=== PATIENT | female | born 1945 | race Caucasian/White ===

== ENCOUNTER 2023-05-27 10:01 | Inpatient (IN) | payer MEDICARE, SELFPAY ==
[2023-05-27] VITALS (10 sets, daily range): BP systolic 139–154; BP diastolic 77–97; PULSE 71–106; RESP 16–18; TEMP 36.9–37.3; O2SAT 95–100; BMI 31.8; BMI 32.0
--- NOTE | ~2023-05-27 | US_ITS ---
EXAMINATION: US right upper quadrant DATE: 05/27/2023 12:20 INDICATION: Right upper quadrant abdominal pain. TECHNIQUE: Multiple grayscale and Doppler ultrasound images of the abdomen were obtained. COMPARISON: CT abdomen and pelvis 05/27/2023 FINDINGS: The visualized portions of the head and body of the pancreas are normal. There is a 5.2 cm cyst with fluid/fluid level in the liver. There is normal flow in main portal vein. The gallbladder i s contracted and contains gallstones. There is a positive sonographic Simon sign. The common duct is normal and measures 8 mm. IMPRESSION: 1. Contracted gallbladder with gallstones. These findings are unlikely to represent acute cholecystit is despite the positive sonographic Simon sign. Consider hepatobiliary scintigraphy. Reviewed, dictated and finalized at location A. NURSE MANAGER IMPRESSION: 1. Contracted gallbladder with gallstones. These findings are unlikely to repre sent acute cholecystitis despite the positive sonographic Simon sign. Consider hepatobiliary scintigraphy.
--- NOTE | ~2023-05-27 | CT_ITS ---
EXAMINATION: CT guide absc cath placement DATE: 05/28/2023 15:33 INDICATION: Hepatic abscess. TECHNIQUE: The procedure including the risks, benefits, and alternatives was discussed with the patie nt. Risks discussed included bleeding and infection. The patient understood the risks and benefits an d agreed to proceed. The skin overlying the abdomen was prepped and draped in usual sterile fashion. Anesthetic was administered with 1% lidocaine subcutaneously. An 18 gauge trochar needle was inserte d into the hepatic abscess with CT guidance. The needle was exchanged over a wire for 6 Albanian and 8 Albanian dilators and then for an 8.5 Albanian pigtail catheter. The catheter was stitched to the skin, a nd a sterile dressing was applied. The mA was adjusted according to patient size. Iterative reconstru ction technique was employed. The dose-length product was 260.82 mGy-cm. The patient experienced a va sovagal reaction during the procedure. FINDINGS: CT images demonstrate the catheter within the hepatic abscess. 8 mL fluid was aspirated for testing. IMPRESSION: 1. Successful CT-guided hepatic abscess drainage. 2. 8 mL yellow fluid was sent for aerobic and anaerobic cultures. Reviewed, dictated and finalized at location A. NURSE
--- NOTE | ~2023-05-27 | CT_ITS ---
EXAMINATION: CT abdomen pelvis w con DATE: 05/27/2023 11:45 INDICATION: Right upper quadrant, left upper quadrant and epigastric pain TECHNIQUE: Computed tomography (CT) of the abdomen and pelvis was performed with 100 CC Omnipaque 350 intravenous contrast. Automated exposure control and iterative reconstruction technique were employe d. Exam dose: 571.57 mGy-cm total exam DLP. COMPARISON: None. FINDINGS: There is a focal discoid scarring or atelectasis at the left lung base, left lower lobe. No consolidation at the lung bases. Heart size is within normal range. No pericardial or pleural effusi on. Contiguous 3.6 x 4 cm and 1.8 x 2.5 cm left hepatic cysts. Mild intrahepatic and extra hepatic bile duct dilatation. Recommend correlation with serum bilirubin level. MRCP for further evaluation if clinically indicated. Normal splenic size. No pancreatic mass lesion or calcification or ductal dilatation. Prominent duodenal diverticulum. The right adrenal gland appears normal. Possible small left adrenal mass, most likely adenoma. No renal mass lesion or urinary tract calculus or hydroureteronephrosis is evident. The urinary bladd er, uterus and adnexal areas are unremarkable other than approximately 1.5 cm left ovarian cyst. There is atherosclerotic calcification of the abdominal aorta. No intraperitoneal or retroperitoneal or pelvic mass lesion or adenopathy or ascites. Normal appendix. Diverticulosis of the colon; no CT evidence of diverticulitis. No bowel obstruction, bowel wall thick ening, pneumatosis or intraperitoneal free air. Chronic mild anterior wedging of T11 and T12. No suspicious osteolytic or osteoblastic lesions are noted. IMPRESSION: Hepatic cysts Nonspecific mild intrahepatic and extrahepatic bile duct dilatation; recommend correlation with serum bilirubin level. Duodenal diverticulum Normal appendix Diverticulosis of the colon; no evidence of diverticulitis 1.5 cm left ovarian cyst Reviewed, dictated and finalized at Location A. Reviewed, dictated and finalized at location B. MACHINIST
--- NOTE | ~2023-05-27 | CT_ITS ---
EXAMINATION: CT abdomen pelvis w con DATE: 05/30/2023 11:59 INDICATION: Follow-up hepatic abscess post drainage TECHNIQUE: Computed tomography (CT) of the abdomen and pelvis was performed with 100 mL Omnipaque-350 intravenous contrast. Automated exposure control and iterative reconstruction technique were employe d. The dose-length product was 763.53 mGy-cm. COMPARISON: CT dated 05/27/2023 and 05/28/2023 MRI dated FINDINGS: Again seen is discoid atelectasis/scarring at the bilateral lower lobes. Heart size is normal. No per icardial or pleural effusion. Small sliding-type hiatal hernia. Near complete decompression of the pr ior hepatic abscess in the medial segment of the left hepatic lobe post percutaneous abscess drainage catheter placement. The degree of residual small collection of fluid along the cephalad margin of th e catheter measures approximately 2.3 x 1.3 x 0.8 cm no interval change in mild intrahepatic ductal o r ductal dilation. Fluid and debris within a 2.8 x 2.2 cm duodenal diverticulum along the posterior m argin of the head of the pancreas. Pancreas, spleen, bilateral adrenal glands and kidneys are normal. There is mild colonic diverticulosis with a sigmoid and descending colon predominance without adjace nt inflammatory change to suggest diverticulitis. Small bowel and appendix are normal. 1.3 cm left ov marcelo cyst/follicle. Bladder and anteverted uterus are normal. No free intraperitoneal gas or fluid. No pathologically enlarged abdominal or pelvic lymphadenopathy. Mild thoracic and lumbar spondylosis with chronic mild anterior wedging at T11 and T12. IMPRESSION: 1. Near complete decompression post percutaneous drainage of intrahepatic abscess in the medial segme nt left hepatic lobe with 2.3 x 1.3 x 0.8 cm residual fluid collection. Reviewed, dictated and finalized at location A. IFIED MEDICAL ASSISTANT IMPRESSION: 1. Near complete decompression post percutaneous drainage of intrahepatic absce ss in the medial segment left hepatic lobe with 2.3 x 1.3 x 0.8 cm residual flu id collection.
--- NOTE | ~2023-05-27 | MR_ITS ---
EXAMINATION: MR MRCP wo/w con/w 3D wo ind DATE: 05/28/2023 09:10 INDICATION: Dilated common bile duct. Right upper quadrant abdominal pain. TECHNIQUE: Magnetic resonance imaging (MRI) of the abdomen was performed without and with 15 mL Multi Aung intravenous contrast. Sequences included coronal T2-weighted FS FSE, coronal T2-weighted FSE, a xial T1-weighted LAVA, coronal FS FIESTA, axial dual-echo T1-weighted SPGR, coronal lava-FLEX, sagitt al T2-weighted FSE, axial T2-weighted FSE, and axial DWI. Thick-slab T2-weighted FSE images were obta ined for magnetic resonance cholangiopancreatography (MRCP). Maximum intensity projection 3-D reconst ructions of the volumetric data were created by the technologist. Postcontrast sequences included cor onal LAVA-flex and time course of axial T1-weighted LAVA. COMPARISON: CT abdomen and pelvis 05/27/2023, ultrasound 05/27/2023 FINDINGS: ABDOMEN MRI: There is a 5.4 x 4.1 x 4.6 cm cystic mass in the left hepatic lobe with hyperenhancing w all containing dependent material. There are gallstones in the gallbladder, which is normal in size. There is a diverticulum of the second portion the duodenum. There is a small sliding hiatal hernia. T he spleen, pancreas, adrenal glands, and kidneys are normal. There are no dilated loops of bowel. ABDOMEN MRCP: The common duct is normal and measures 7 mm. No choledocholithiasis. IMPRESSION: 1. 5.4 x 4.1 x 4.6 cm abscess in left hepatic lobe. Consider CT-guided drainage. 2. Cholelithiasis. 3. Small sliding hiatal hernia. Reviewed, dictated and finalized at location A. OLOGY TECHNOLOGIST IMPRESSION: 1. 5.4 x 4.1 x 4.6 cm abscess in left hepatic lobe. Consider CT-guided drainage . 2. Cholelithiasis. 3. Small sliding hiatal hernia.
--- NOTE | ~2023-05-27 | NM_ITS ---
EXAMINATION: NM hepatobiliary w pharm DATE: 05/28/2023 11:18 INDICATION: Dilated common bile duct. COMPARISON: CT 05/27/2023 TECHNIQUE: 4.8 mCi Tc-99m mebrofenin (Choletec) was administered intravenously. Scintigraphic images of the abdomen were obtained for one hour. Then, 2 mg morphine IV was administered, and imaging was continued for 30 minutes. Delayed images were obtained at 4 hours. FINDINGS: There is normal clearance of radiotracer from the blood pool. There is decreased activity i n the liver correlating with the abscess seen by MRI. Activity progresses to the bowel and gallbladde r. IMPRESSION: 1. Patent cystic duct and common duct. Reviewed, dictated and finalized at location A. PACKER
--- NOTE | 2023-05-27 10:22 | ECG_ITS ---
Measurements Intervals [place] Rate: 87 P: 24 ND: 134 QRS: -35 QRSD: 92 T: 23 QT: 346 QTc: 416 Interpretive Statements SINUS RHYTHM WITH OCCASIONAL SUPRAVENTRICULAR PREMATURE COMPLEXES MARKED LEFT AXIS DEVIATION [QRS AXIS < -30] LOW QRS VOLTAGE IN PRECORDIAL LEADS [QRS DEFLECTION < 1.0 mV IN CHEST LEADS] INCOMPLETE RIGHT BUNDLE BRANCH BLOCK [90+ ms QRS DURATION, TERMINAL R IN V1/V2, 40+ ms S IN I/aVL/V4/V5/V6] VOLTAGE CRITERIA FOR LVH [MEETS CRITERIA IN ONE OF: R(aVL), S(V1), R(V5), R(V5/V6)+S(V1)] POSSIBLE ANTERIOR MYOCARDIAL INFARCTION , PROBABLY OLD [30 ms Q WAVE IN V3/V4, OR R < 0.2 mV IN V4] ABNORMAL ECG NO PREVIOUS ECG AVAILABLE FOR COMPARISON Electronically Signed On 05-27-2023 11:54:52 PRIVATE BRANCH EXCHANGE SERVICE ADVISOR by Eduardo Mandujano M.D.
[2023-05-27 11:12] LABS: Basophils Percent Auto 0.2 % (0.2-1.2); Eosinophils Percent Auto 0.1 % (0-4.4); Hemoglobin 12.9 g/dL (12.0-15.0); Immature Granulocyte Absolute 0.06 K/mm3 (0.00-0.031); Immature Granulocyte Percent A 0.4 % (0-0.5); Lymphocytes Absolute Auto 1.12 K/mm3 (0.9-3.2); Lymphocytes Percent Auto 8.2 % (18.3-44.2); Mean Corpuscular HGB Conc 32.3 g/dl (32-36); Mean Corpuscular Hemoglobin 28.7 pg (26-34); Mean Corpuscular Volume 88.9 fl (80-100); Mean Platelet Volume 10.6 fl (7.4-10.4); Monocytes Absolute Auto 1.2 K/mm3 (0.1-0.6); Monocytes Percent Auto 8.4 % (2.6-8.5); Neutrophils Absolute Auto 11.4 K/mm3 (1.3-6.7); Neutrophils Percent Auto 82.7 % (45.5-73.1); Platelet Count Result 228 k/mm3 (150-375); Red Cell Distribution Width 14.2 % (11.5-14.5); White Blood Count 13.7 K/mm3 (4.5-10.0)
[2023-05-27 11:22] LABS: Alanine Aminotransferase 27 U/L (6-35); Albumin Level 4.1 g/dL (3.5-5.1); Alkaline Phosphatase 118 U/L (38-126); Anion Gap 5 mmol/L (8-16); Aspartate Amino Transferase 26 U/L (14-36); Bilirubin,Total 1.8 mg/dL (0.2-1.3); Blood Urea Nitrogen 16 mg/dL (7-17); Calcium 9.8 mg/dL (8.4-10.2); Carbon Dioxide 32 mmol/L (22-30); Chloride 99 mmol/L (98-107); Estimated CRCL calculation 57 ml/min; Estimated Glomerular Filt Rate > 60; Glucose 126 mg/dL (65-110); Lipase 28 U/L (23-300); Potassium 3.4 mmol/L (3.4-5.0); Sodium 136 mmol/L (137-145)
--- NOTE | 2023-05-27 11:23 | ED.ABDPAIN ---
HPI - Abdominal Pain General Chief Complaint: Abdominal Pain <Ivanna Charlton PA-C - Last Filed: 05/27/23 15:18> Stated Complaint: abd pain <Ivanna Charlton PA-C - Last Filed: 05/27/23 15:18> Time Seen by Provider: 05/27/23 11:05 <CAPRI Wilder Last Filed: 05/27/23 15:18> History of Present Illness HPI narrative: 78-year-old female reports for evaluation for epigastric, right upper quadrant left upper quadrant abdominal pain x4 days. Patient states 3 days ago, she developed body aches, headache, fever of 100.8. States she felt ill for approximately 2 days but that has since resolved. States she noted that her abdominal pain worsened every time she would eat. Yesterday, she had [place] onion soup from [employer] and had worsening abdominal pain that has progressed into today. On exam, she states that her pain has improved for the past few hours. She went to Urgent Care and tested negative for COVID and fluid was sent to the emergency department for further evaluation. She is reporting mild cough. Denies chest pain or shortness of breath, dysuria or hematuria, melena hematochezia. Denies prior abdominal surgeries. <CAPRI Wilder Last Filed: 05/27/23 15:18> Related Data Home Medications: Home Medications Medication Instructions Recorded Confirmed alprazolam 0.25 mg tablet 0.25 mg PO DAILY PRN Anxiety 05/27/23 05/27/23 atorvastatin 10 mg tablet 10 mg PO DAILY 05/27/23 05/27/23 hydrochlorothiazide 25 mg tablet 25 mg PO DAILY 05/27/23 05/27/23 lisinopril 10 mg tablet 10 mg PO DAILY 05/27/23 05/27/23 meloxicam 7.5 mg tablet 7.5 mg PO DAILY 05/27/23 05/27/23 trazodone 100 mg tablet 100 mg PO HS 05/27/23 05/27/23 <CAPRI Wilder Last Filed: 05/27/23 15:18> Allergies/Adverse Reactions: Allergies Allergy/AdvReac Type Severity Reaction Status Date / Time aspirin Allergy Unknown Verified 05/27/23 10:21 <Ivanna Charlton PA-C - Last Filed: 05/27/23 15:18> Review of Systems Review of Systems: CONSTITUTIONAL: Denies fever, chills, or sweats. EYES: Denies visual changes, redness, or discharge. ENT: Denies rhinorrhea, congestion, sore throat, or otalgia. CARDIOVASCULAR: Denies chest pain, palpitations, or edema. RESPIRATORY: Denies cough or dyspnea. GASTROINTESTINAL: See HPI GENITOURINARY: Denies dysuria or hematuria. SKIN: Denies rash or itching. MUSCULOSKELETAL: Denies back pain, joint pain, or myalgia. NEUROLOGIC: Denies headache, numbness, or weakness. PSYCHIATRIC: Denies anxiety or depression. <Ivanna Charlton PA-C - Last Filed: 05/27/23 15:18> PMFSH Social History Social History: Social History Smoking status: Never smoker Alcohol intake: never Substance use: never Do You Feel Safe in your Home?: Yes Lack of Transportation: No Lack of Food: Never True Current Housing: I Have Housing Concerned About Future Housing: No Difficulty Paying Gas/Electric Bills: No Difficulty Paying for Meds: No Currently Unemployed: No Education: Decline to Answer Difficulty w/ Childcare or Family Care: No Spiritual care concerns: No <Ivanna Charlton PA-C - Last Filed: 05/27/23 15:18> Exam Narrative: GENERAL: Well-appearing, well-nourished, and in no acute distress. Patient resting comfortably in exam bed. She is pleasant and conversational. Nontoxic. HEAD: Normocephalic, atraumatic. EYES: PERRLA and EOMI. ENT: Nares clear, no rhinorrhea or epistaxis. Mucous membranes moist. NECK: Supple. CHEST: Clear to auscultation. No respiratory distress. HEART: Regular rate and rhythm. No murmur heard. Normal peripheral pulses. ABDOMEN: Normoactive bowel sounds. Abdomen soft with tenderness in the left upper quadrant, epigastrium and right upper quadrant. Guarding in the right upper quadrant with positive Simon sign. No rebound rigidity. No CVA tenderness. EXTREMITIES: Normal
[2023-05-27 11:26] LABS: Appearance Urine Clear (Clear); Bacteria Urine None Seen /hpf; Bilirubin Urine Negative (Negative); Blood Urine Negative (Negative); Color Urine Yellow (Yellow); Glucose Urine UA Negative (Negative); Ketones Urine Negative (Negative); Leukocyte Esterase Ur Trace LEU/UL (Negative); Nitrate Urine Negative (Negative); Non Pathogenic Casts 0-2; Protein Urine Negative (Negative); RBC Urine 0-2 /hpf (0-2); Specific Grav Ur 1.015 (1.001-1.035); Squamous Epithelial Cell Urine Few /hpf (Few); WBC Urine 0-5 /hpf
[2023-05-27] MEDS: ACETAMINOPHEN 500 MG TABLET 1000 MG PO (11:26)
[2023-05-27 11:41] LABS: Add Urine Microscopic? YES
[2023-05-27 11:46] LABS: Influenza A QL RT-PCR Negative (Negative); Influenza B QL RT-PCR Negative (Negative); RSV RNA, RT-PCR Negative (Negative); SARS-CoV-2 RNA PCR Negative (Negative)
[2023-05-27 11:48] LABS: Troponin I < 0.012 ng/mL (0.000-0.034)
[2023-05-27] MEDS: FAMOTIDINE 20 MG/2 ML VIAL IV PUSH (11:50)
[2023-05-27 11:51] LABS: Lactic Acid Reflex 1.2 mmol/L (0.7-2.0)
[2023-05-27] MEDS: SODIUM CHLORIDE 0.9% IV 1,000 ML 999 ML IV CONT (15:03)
[2023-05-27] MEDS: PIPERACILLN/TAZ 3.375GM/NS50ML 3.375 GM/50 ML BAG IVPB ×2 (15:03→20:28)
--- NOTE | 2023-05-27 15:07 | WPDGICN ---
Assessment and Plan Assessment and plan (1) Cholelithiasis: Qualifiers: Biliary obstruction: without biliary obstruction Cholecystitis presence: without cholecystitis Cholelithiasis location: gallbladder Qualified Code(s): K80.20 - Calculus of gallbladder without cholecystitis without obstruction Code(s): K80.20 - Calculus of gallbladder without cholecystitis without obstruction Status: Acute Assessment and Plan: ultrasound shows a contracted gallbladder with numerous stones. Investment Sales Assistant reported positive Simon sign. (2) Intrahepatic bile duct dilation: Code(s): K83.8 - Other specified diseases of biliary tract Status: Acute Assessment and Plan: CT scan of the abdomen reveals: FINDINGS: There is a focal discoid scarring or atelectasis at the left lung base, left lower lobe. No consolidation at the lung bases. Heart size is within normal range. No pericardial or pleural effusion. Contiguous 3.6 x 4 cm and 1.8 x 2.5 cm left hepatic cysts. Mild intrahepatic and extra hepatic bile duct dilatation. Recommend correlation with serum bilirubin level. MRCP for further evaluation if clinically indicated. Normal splenic size. No pancreatic mass lesion or calcification or ductal dilatation. Prominent duodenal diverticulum. The right adrenal gland appears normal. Possible small left adrenal mass, most likely adenoma. No renal mass lesion or urinary tract calculus or hydroureteronephrosis is evident. The urinary bladder, uterus and adnexal areas are unremarkable other than approximately 1.5 cm left ovarian cyst. There is atherosclerotic calcification of the abdominal aorta. No intraperitoneal or retroperitoneal or pelvic mass lesion or adenopathy or ascites. Normal appendix. Diverticulosis of the colon; no CT evidence of diverticulitis. No bowel obstruction, bowel wall thickening, pneumatosis or intraperitoneal free air. Chronic mild anterior wedging of T11 and T12. No suspicious osteolytic or osteoblastic lesions are noted. (3) Fever and chills: Code(s): R50.9 - Fever, unspecified Status: Acute Assessment [place] Plan: [place] [address]. She is afebrile here in the emergency room. she will be started on antibiotics, Zosyn Plan will order MRCP. She may also benefit from HIDA scan. NPO for now I told her that if the MRCP shows stones in the common bile duct, that we may need to perform an ERCP. If negative, then we would probably request surgery to visit her again. GI Consult Note Consult date/time: 05/27/23 15:07 HPI: Ying Franco is a 78 year old female who came to the emergency room because of persistent right upper quadrant pain had fever and chills. On Thursday she developed pain across the upper abdomen, more on the right than left. It was present all day and subsided a bit on Thursday. After feeling that it was almost gone, it came back with a vengeance yesterday after she had some soup. Also, on Thursday and Thursday she has been having intermittent chills and fever. She has eaten very little over these days because the pain always got worse when she would try to eat. Ultrasound shows a contracted gallbladder with stones. Pace and LFTs are normal but bilirubin is marginally elevated at 1.8. lipase is also normal. This surgery was apparently contacted and declined to see the patient feeling that this is probably not gallbladder disease. On the ultrasound she apparently did have a positive Simon sign. Review of Systems Review of Systems: All systems reviewed & are unremarkable except as noted in HPI and below Meds Home Medications and Allergies Allergies Allergy/AdvReac Type Severity Reaction Status Date / Time aspirin Allergy Unknown Verified 05/27/23 10:21 Vital Signs Vital Signs - 24 hr 05/27/23 10:17 05/27/23 11:52 05/27/23 12:11 Temperature 36.9 C Pulse Rate 88 Respiratory Rate 16 Blood Pressure 142/85 H
[2023-05-27] MEDS: MORPHINE SULFATE (*CRX) 2 MG/ML INJ IV PUSH ×2 (16:43→20:37)
--- NOTE | 2023-05-27 16:50 | ADMGEN ---
This patient, Ying Franco, was admitted to [address] [place] [address] Room 311-01. Patient/family oriented to hospital policies and general routines including ID bracelet, bed and alarms, visiting hours, pain management, procedures, bathroom and other care routines, personal items, smoking policy, room service/diet, and visiting hours. Information on how to activate the Rapid Response Team has been discussed. Patient/Family are encouraged to report perceived risks to care and to ask questions if they do not understand what they are told or what they should do.
--- NOTE | 2023-05-27 19:24 | WPDCN ---
Assessment and Plan Assessment and plan (1) Cholelithiasis: Qualifiers: Biliary obstruction: without biliary obstruction Cholecystitis presence: without cholecystitis Cholelithiasis location: gallbladder Qualified Code(s): K80.20 - Calculus of gallbladder without cholecystitis without obstruction Code(s): K80.20 - Calculus of gallbladder without cholecystitis without obstruction Status: Acute Assessment and Plan: Patient has right upper quadrant abdominal pain and gallstones and a contracted gallbladder on imaging. She also has dilated common bile duct with some dilated intrahepatic bile ducts. She may passing gallstones and have a retained common bile duct stone causing the bile duct dilatation. She has been seen by Dr. Howard from Gastroenterology in MRCP has been ordered for tomorrow. She could also have chronic cholecystitis but no evidence of acute cholecystitis seen on imaging. I am going to order HIDA scan to be performed tomorrow as well to evaluate the function of the gallbladder and see the cystic duct is patent. For now she should be kept NPO with only ice chips. Zosyn was started for IV antibiotics because she had white blood count 13757 and she may have biliary obstruction. (2) Intrahepatic bile duct dilation: Code(s): K83.8 - Other specified diseases of biliary tract Status: Acute Assessment and Plan: Could be related to biliary obstruction. MRCP is pending for tomorrow. If common bile duct stones are seen the patient will need ERCP prior to any attempt at a laparoscopic cholecystectomy. [facility] Data of Consult Date/Time: 05/27/23 19:24 Requesting Physician: Jak Canales MD Primary Care Provider: PHYSICIAN NOT ON STAFF Consult Narrative Reason for consult: Right upper quadrant abdominal pain and gallstones Narrative: Ying Franco is a 78 year old female who presented to the emergency room today with a 3 day history of worsening right upper quadrant abdominal pain. She had not had this pain in the past. She has denied having any associated pain with eating or any nausea with eating. She has not had any previous abdominal surgery. She does have hypertension but no diabetes. Denies any pulmonary, cardiac, or renal disease. Imaging to include a CT scan of the abdomen pelvis and ultrasound showed a mildly thickened gallbladder wall and a contracted gallbladder with gallstones. There is no pericholecystic fluid acute cholecystitis on imaging. [place] [address]. Imaging did seem to show a dilated common bile duct and some intrahepatic bile duct dilatation. No obvious gallstone was seen on imaging in the bile ducts. She has been admitted to the hospital the surgical floor for further evaluation. She was given a dose of IV antibiotics in the emergency room. She has been seen by Dr. Howard from Gastroenterology and an MRCP is ordered for tomorrow. Review of Systems Review of Systems: The remainder of the review of systems to include constitutional, HEENT, cardiovascular, respiratory, GI, , integumentary, musculoskeletal, endocrine, immunologic, hematologic, psychiatric, and neurologic are all negative except for which is mentioned above in the HPI. [facility] Social History Social History Smoking status: Never smoker Alcohol intake: never Substance use: never Do You Feel Safe in your Home?: Yes Lack of Transportation: No Lack of Food: Never True Current Housing: I Have Housing Concerned About Future Housing: No Difficulty Paying Gas/Electric Bills: No Difficulty Paying for Meds: No Currently Unemployed: No Education: Decline to Answer Difficulty w/ Childcare or Family Care: No Spiritual care concerns: No Meds Home Medications and Allergies Home Medications Medication Instructions Recorded Confirmed Type alprazol
[2023-05-27] MEDS: DEXTROSE 5%/LACTATED RINGERS 1,000 ML 120 ML IV CONT (20:28)
--- NOTE | 2023-05-27 22:08 | PM.IMHP ---
H&P: HPI History of Present Illness Date/Time: 05/27/23 22:08 Chief Complaint: Abdominal pain Narrative: 78-year-old relatively healthy female with a medical history of essential hypertension, anxiety, osteoarthritis and insomnia who presented to the ER with upper abdominal pain ongoing since Thursday (4 days). she reported that the pain was mostly in the epigastric and right upper quadrant area and was 9/10 in intensity. It was initially associated with some nausea but no significant amount of vomiting. The next day the pain had improved with down to a 5/10 intensity but was accompanied by headaches, body aches fevers and chills. She thought that she was having viral syndrome. Her symptoms improved the next day and she thought she was in the clear. Following day she had some [place] [employer] onion soup after which eating she had more severe pain. The pain was more constant and a 9/10 in intensity again. Pain was throbbing and aching in nature. On palpation has pain as directly in the right upper quadrant. She had no preceding symptoms or prodrome of symptoms prior to Thursday. She denies any associated chest pain or shortness of breath. She has not had any recent weight changes. She denies any jaundice. In the ER CT scan was performed which demonstrate nonspecific mild intrahepatic and extrahepatic bile duct dilatation. Ultrasound of gallbladder demonstrated contracted gallbladder with gallstones but patient did have significant sonographic Simon sign. Review of Systems Review of Systems: 12 systems were reviewed with pertinent positives and negatives per HPI. Except as documented in the HPI, all other systems were reviewed and are negative. [facility] Past Medical History Medical History (Updated 05/27/23 @ 22:10 by Darlin Miranda DO) Anxiety Depression Essential hypertension Hyperlipidemia Migraine Osteoarthritis Surgical History Surgical History (Updated 05/27/23 @ 22:10 by Darlin Miranda DO) History of bilateral knee replacement Status post cataract extraction of both eyes with insertion of intraocular lens (~2022) Family History Family History (Updated 05/28/23 @ 08:22 by Darlin Miranda DO) Sibling Dementia Mother Dementia Father COPD (chronic obstructive pulmonary disease) Social History Social History (Updated 05/28/23 @ 08:26 by Darlin Miranda DO) Social History: Code status: Full code (patient would not want long-term ventilation or feeding tube) Surrogate decision maker: Smoking status: Never smoker Alcohol intake: current Alcohol use details: She rarely drinks alcohol and only in moderation. Substance use: never Do You Feel Safe in your Home?: Yes Lack of Transportation: No Lack of Food: Never True Current Housing: I Have Housing Concerned About Future Housing: No Difficulty Paying Gas/Electric Bills: No Difficulty Paying for Meds: No Currently Unemployed: No Education: Decline to Answer Difficulty w/ Childcare or Family Care: No Additional living arrangements comments: She lives with her of 40 years. She is independent activities of daily living. 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 Spiritual care concerns: No Meds Home Medications and Allergies Home Medications Medication Instructions Recorded Confirmed Type alprazolam 0.25 mg tablet 0.25 mg PO DAILY PRN Anxiety 05/27/23 05/27/23 History atorvastatin 10 mg tablet 10 mg PO DAILY 05/27/23 05/27/23 History hydrochlorothiazide 25 mg tablet 25 mg PO DAILY 05/27/23 05/27/23 History lisinopril 10 mg tablet 10 mg PO DAILY 05/27/23 05/27/23 History meloxicam 7.5 mg tablet 7.5 mg PO DAILY 05/27/23 05/27/23 History trazodone 100 mg tablet 100 mg PO HS 05/27/23 05/27/23 History Allergies Allergy/AdvReac Type Severity Reaction Status Date / Ti
[2023-05-27] MEDS: traZODone HCL 50 MG TABLET 100 MG PO (23:22)
[2023-05-28] MEDS: PIPERACILLN/TAZ 3.375GM/NS50ML 3.375 GM/50 ML BAG IVPB ×3 (03:38→17:20)
[2023-05-28] MEDS: DEXTROSE 5%/LACTATED RINGERS 1,000 ML 120 ML IV CONT (05:33)
[2023-05-28 06:00] VITALS: BP 142/72; PULSE 84; RESP 18; TEMP 36.7; O2SAT 95
[2023-05-28 06:02] LABS: Basophils Percent Auto 0.2 % (0.2-1.2); Eosinophils Percent Auto 0.2 % (0-4.4); Hematocrit 35.8 % (37.0-47.0); Hemoglobin 11.4 g/dL (12.0-15.0); Immature Granulocyte Absolute 0.05 K/mm3 (0.00-0.031); Immature Granulocyte Percent A 0.5 % (0-0.5); Lymphocytes Absolute Auto 1.44 K/mm3 (0.9-3.2); Lymphocytes Percent Auto 13.6 % (18.3-44.2); Mean Corpuscular HGB Conc 31.8 g/dl (32-36); Mean Corpuscular Hemoglobin 28.2 pg (26-34); Mean Corpuscular Volume 88.6 fl (80-100); Mean Platelet Volume 10.4 fl (7.4-10.4); Monocytes Percent Auto 9.4 % (2.6-8.5); Neutrophils Percent Auto 76.1 % (45.5-73.1); Platelet Count Result 239 k/mm3 (150-375); Red Blood Count 4.04 M/mm3 (4.2-5.4); White Blood Count 10.6 K/mm3 (4.5-10.0)
[2023-05-28 06:28] LABS: Alanine Aminotransferase 22 U/L (6-35); Albumin Level 3.6 g/dL (3.5-5.1); Alkaline Phosphatase 102 U/L (38-126); Anion Gap 4 mmol/L (8-16); Aspartate Amino Transferase 25 U/L (14-36); Bilirubin,Total 1.2 mg/dL (0.2-1.3); Blood Urea Nitrogen 13 mg/dL (7-17); Calcium 8.9 mg/dL (8.4-10.2); Carbon Dioxide 31 mmol/L (22-30); Chloride 101 mmol/L (98-107); Estimated CRCL calculation 50 ml/min; Estimated Glomerular Filt Rate > 60; Glucose 151 mg/dL (65-110); Potassium 3.3 mmol/L (3.4-5.0); Sodium 136 mmol/L (137-145)
[2023-05-28] MEDS: MORPHINE SULFATE (*CRX) 2 MG/ML INJ IV PUSH ×4 (11:05→20:20)
[2023-05-28] MEDS: POTASSIUM CHLORIDE INJ 40 MEQ in SODIUM CHLORIDE 0.9% IV 500 ML 130 MEQ IVPB (11:54)
--- NOTE | 2023-05-28 12:49 | WPDPN ---
Progress Note: A&P Assessment and Plan (1) Liver abscess: Code(s): K75.0 - Abscess of liver Status: Acute Assessment and Plan: Patient appears to have an approximate 5cm right medial lobe liver abscess on MRCP. Appears amenable to percutaneous drainage. Will order a image guided liver abscess drainage in Radiology. Continue broad-spectrum IV antibiotic coverage. (2) Cholelithiasis: Qualifiers: Biliary obstruction: without biliary obstruction Cholecystitis presence: without cholecystitis Cholelithiasis location: gallbladder Qualified Code(s): K80.20 - Calculus of gallbladder without cholecystitis without obstruction Code(s): K80.20 - Calculus of gallbladder without cholecystitis without obstruction Status: Acute Assessment and Plan: Cholelithiasis without evidence of acute Cholecystitis. HIDA scan seems to show a patent cystic duct. Given the findings of the right liver abscess which could explain her fever and elevated white blood cell count I think is best at this point not to consider cholecystectomy. (3) Intrahepatic bile duct dilation: Code(s): K83.8 - Other specified diseases of biliary tract Status: Acute Assessment and Plan: No common bile duct stone was seen. Subjective Date/time seen: 05/28/23 12:49 Interval history: Patient is clinically stable today. No new complaints. MRCP showed gallstones and no common bile duct stone. There was a 5cm right hepatic lobe abscess which seemed to be amenable to percutaneous drainage as per the radiology report. HIDA scan has been performed and an official radiology reading is pending however to my review it looks like there is passage of radionucleotide into the duodenum suggesting no obstruction of the cystic duct. She remains afebrile without tachycardia. Blood cell count is down to 10,000 from 13,000 admission. Total bili was down from 1.8 down to 1.3 on the remaining liver enzymes are all normal. Exam GI: Other: Abdomen is soft and nondistended. Minimal tenderness in right upper quadrant to deep palpation. No masses are appreciated. No generalized peritoneal signs noted. Objective Data Vital Signs Vital Signs: Vital Signs - 24 hr 05/27/23 12:55 05/27/23 14:18 05/27/23 13:29 Temperature Pulse Rate 71 Respiratory Rate 16 Blood Pressure 139/97 H Pulse Oximetry 100 100 100 Oxygen Delivery 05/27/23 14:18 05/27/23 14:36 05/27/23 14:46 Temperature Pulse Rate Respiratory Rate Blood Pressure 139/97 H Pulse Oximetry 100 100 100 Oxygen Delivery 05/27/23 17:04 05/27/23 20:20 05/27/23 21:47 Temperature 37.3 C 37.3 C Pulse Rate 79 106 H Respiratory Rate 18 18 Blood Pressure 147/79 H 154/77 H Pulse Oximetry 99 95 Oxygen Delivery Room Air 05/28/23 06:00 Temperature 36.7 C Pulse Rate 84 Respiratory Rate 18 Blood Pressure 142/72 H Pulse Oximetry 95 Oxygen Delivery Intake/Output Intake/Output: Intake & Output 05/25/23 05/26/23 05/27/23 05/28/23 23:59 23:59 23:59 23:59 Intake Total 1100 1000 Balance 1100 1000 Meds/Results Medications: Active Medications Generic Name Dose Route Start Last Admin Trade Name Freq PRN Reason Stop Dose Admin Alprazolam 0.25 mg 05/27/23 22:11 Alprazolam (*Crx) 0.25 Mg Tablet PO DAILY PRN Anxiety Enoxaparin Sodium 40 mg 05/28/23 09:00 05/28/23 11:04 Enoxaparin 40 Mg/0.4 Ml Syringe SUB-Q Not Given DAILY PAUL Hydralazine HCl 10 mg 05/27/23 22:12 Hydralazine Hcl 20 Mg/Ml Vial IV PUSH Q4H PRN SBP greater than 160 Hydrochlorothiazide 25 mg 05/28/23 09:00 05/28/23 11:04 Hydrochlorothiazide 25 Mg Tablet PO Not Given DAILY PAUL Dextrose/Lactated Ringer's 1,000 mls @ 120 mls/hr 05/27/23 19:20 05/28/23 05:33 Dextrose 5%/Lactated Ringers IV CONT 120 mls/hr .Q8H20M PAUL Administration Piperacillin/Tazobactam/Dextrose 3.37
[2023-05-28 12:53] LABS: Prothrombin Time 13.6 Seconds (11.1-14.7)
--- NOTE | 2023-05-28 12:53 | WPDGIPROGNO ---
Progress Note: A&P Assessment and Plan (1) Cholelithiasis: Qualifiers: Biliary obstruction: without biliary obstruction Cholecystitis presence: without cholecystitis Cholelithiasis location: gallbladder Qualified Code(s): K80.20 - Calculus of gallbladder without cholecystitis without obstruction Code(s): K80.20 - Calculus of gallbladder without cholecystitis without obstruction Status: Acute Assessment and Plan: ultrasound shows a contracted gallbladder with numerous stones. Pet Trainer reported positive Simon sign. (2) Intrahepatic bile duct dilation: Code(s): K83.8 - Other specified diseases of biliary tract Status: Acute Assessment and Plan: CT scan of the abdomen reveals: FINDINGS: There is a focal discoid scarring or atelectasis at the left lung base, left lower lobe. No consolidation at the lung bases. Heart size is within normal range. No pericardial or pleural effusion. Contiguous 3.6 x 4 cm and 1.8 x 2.5 cm left hepatic cysts. Mild intrahepatic and extra hepatic bile duct dilatation. Recommend correlation with serum bilirubin level. MRCP for further evaluation if clinically indicated. Normal splenic size. No pancreatic mass lesion or calcification or ductal dilatation. Prominent duodenal diverticulum. The right adrenal gland appears normal. Possible small left adrenal mass, most likely adenoma. No renal mass lesion or urinary tract calculus or hydroureteronephrosis is evident. The urinary bladder, uterus and adnexal areas are unremarkable other than approximately 1.5 cm left ovarian cyst. There is atherosclerotic calcification of the abdominal aorta. No intraperitoneal or retroperitoneal or pelvic mass lesion or adenopathy or ascites. Normal appendix. Diverticulosis of the colon; no CT evidence of diverticulitis. No bowel obstruction, bowel wall thickening, pneumatosis or intraperitoneal free air. Chronic mild anterior wedging of T11 and T12. No suspicious osteolytic or osteoblastic lesions are noted. MRCP is normal. No common bile duct stones. HIDA scan has been done and results are pending. (3) Fever and chills: Code(s): R50.9 - Fever, unspecified Status: Acute Assessment [place] Plan: [place] [id number]. She is afebrile here in the emergency room. she will be started on antibiotics, Zosyn Today white blood count is down to 10,600. Plan will order MRCP. She may also benefit from HIDA scan. NPO for now I told her that if the MRCP shows stones in the common bile duct, that we may need to perform an ERCP. If negative, then we would probably request surgery to visit her again. MRCP is negative. LFTs are also improving. I will sign off Subjective Date/time seen: 05/28/23 12:53 She states that her pain is a little better but she feels crummy, and weak. She has been getting tests all morning and has had nothing to eat. She expressed that if surgery is not going to be done she would like to to try eating. I discussed with her the results of the MRCP which as I suspected were negative for choledocholithiasis. HIDA scan has been done but we do not have the results. I told her that my assistance will not be needed at this time and will sign off Exam Const: General: cooperative and healthy appearing Orientation/consciousness: patient oriented x3 HENMT: Head: normal to inspection Ears: hearing grossly normal bilaterally Mouth: Yes Normal oral and palatal mucosa present Eyes: General: appearance normal, both eyes and all related structures Neck: Neck: normal visual inspection Chest: Chest palpation & inspection: normal inspection of the chest Resp: Effort & Inspection: normal respiratory effort Auscultation: clear to auscultation bilaterally Cardio: Rate: regular rate Rhythm: regular rhythm GI: Inspection: normal to inspection GI Palp: Yes abdominal tenderness ( Epigastric and right upper quadrant), Yes Soft to pa
[2023-05-28 14:00] VITALS: BP 132/60; PULSE 70; RESP 20; TEMP 36.7; O2SAT 96
--- NOTE | 2023-05-28 15:03 | PM.IMPN ---
Progress Note: A&P Assessment and Plan (1) Cholelithiasis: Qualifiers: Biliary obstruction: without biliary obstruction Cholecystitis presence: without cholecystitis Cholelithiasis location: gallbladder Qualified Code(s): K80.20 - Calculus of gallbladder without cholecystitis without obstruction Code(s): K80.20 - Calculus of gallbladder without cholecystitis without obstruction Status: Acute Assessment and Plan: Cholelithiasis without evidence of acute ? HIDA scan seems to show a patent cystic duct.? right liver abscess which could explain her fever and elevated white blood cell pt is being considered for cholecystectomy. (2) Fever and chills: Code(s): R50.9 - Fever, unspecified Status: Resolved Assessment and Plan: -continue to monitor vital signs (3) Intrahepatic bile duct dilation: Code(s): K83.8 - Other specified diseases of biliary tract Status: Acute Assessment and Plan: ?No common bile duct stone was seen. Subjective Date/time seen: 05/28/23 0830 Interval history: Chief Complaint: Abdominal pain Narrative: 78-year-old relatively healthy female with a medical history of essential hypertension, anxiety, osteoarthritis and insomnia who presented to the ER with upper abdominal pain ongoing since Thursday (4 days).? she reported that the pain was mostly in the epigastric and right upper quadrant area and was 9/10 in intensity.? It was initially associated with some nausea but no significant amount of vomiting.? The next day the pain had improved with down to a 5/10 intensity but was accompanied by headaches, body aches fevers and chills.? She thought that she was having viral syndrome.? Her symptoms improved the next day and she thought she was in the clear.? Following day she had some [place] onion soup after which eating she had more severe pain.? The pain was more constant and a 9/10 in intensity again.? Pain was throbbing and aching in nature.? On palpation has pain as directly in the right upper quadrant.? She had no preceding symptoms or prodrome of symptoms prior to Thursday.? She denies any associated chest pain or shortness of breath.? She has not had any recent weight changes.? She denies any jaundice.? In the ER CT scan was performed which demonstrate nonspecific mild intrahepatic and extrahepatic bile duct dilatation.? Ultrasound of gallbladder demonstrated contracted gallbladder with gallstones but patient did have significant sonographic Simon sign. Interval Hx:05/28/2023 Pt was seen around 1600, today, she is has been in procedure for most of the day, she is awake, anxious, c/o of ongoing RUQ pain, specifically where her CT guided hepatic abscess drain has been placed. Denies any n/v, chest pain or SOB at this time. She has multiple request for pain medication. Review of Systems Review of Systems: All systems reviewed & are unremarkable except as noted in HPI and below Exam Narrative: Weight 79.5 kg BMI 32.1 Const: General: cooperative and acute distress mild Orientation/consciousness: patient oriented x3 Other: Obese, no acute distress, appears stated age HENMT: Head: normal to inspection Ears: hearing grossly normal bilaterally Mouth: Yes Normal oral and palatal mucosa present Other: Mucous membranes moist intact, no oral pharyngeal erythema Eyes: General: appearance normal, both eyes and all related structures Sclera: sclerae normal ( No scleral icterus) Pupils: Equal, round and reactive pupils present EOM: EOMs intact bilaterally Other: No scleral icterus, no conjunctival pallor Neck: Neck: normal visual inspection, supple and no JVD Other: Large neck circumference, no lymphadenopathy, supple Chest: Chest palpation & inspection: normal inspection of the chest Resp: Effort & Inspection: normal respiratory effort Auscultation: clear to auscultation bilaterally Other: Clear to auscultation bi
[2023-05-28] MEDS: ALPRAZolam (*CRX) 0.25 MG TABLET PO (17:21)
[2023-05-28 20:00] VITALS: O2SAT 96
[2023-05-28 20:20] VITALS: BP 144/87; PULSE 86; RESP 16; TEMP 36.9; O2SAT 96
[2023-05-28] MEDS: traZODone HCL 50 MG TABLET 100 MG PO (20:20)
[2023-05-28 23:42] VITALS: BP 138/60; PULSE 70; RESP 16; TEMP 36.1; O2SAT 97
[2023-05-29] MEDS: DEXTROSE 5%/LACTATED RINGERS 1,000 ML 120 ML IV CONT (02:45)
[2023-05-29 04:10] VITALS: BP 138/68; PULSE 82; RESP 16; TEMP 36.4; O2SAT 98
[2023-05-29] MEDS: PIPERACILLN/TAZ 3.375GM/NS50ML 3.375 GM/50 ML BAG IVPB ×3 (05:06→11:51)
[2023-05-29] MEDS: ALPRAZolam (*CRX) 0.25 MG TABLET PO (08:27)
[2023-05-29] MEDS: hydroCHLOROthiazide 25 MG TABLET PO (08:27)
[2023-05-29] MEDS: lisinopriL 10 MG TABLET PO (08:27)
[2023-05-29] MEDS: ENOXAPARIN 40 MG/0.4 ML SYRINGE SUB-Q (08:27)
[2023-05-29] MEDS: MORPHINE SULFATE (*CRX) 2 MG/ML INJ IV PUSH ×5 (08:33→20:16)
--- NOTE | 2023-05-29 12:21 | PM.IMPN ---
Subjective Date/time seen: 05/29/23 12:21 Interval history: Chief Complaint: Abdominal pain Narrative: 78-year-old relatively healthy female with a medical history of essential hypertension, anxiety, osteoarthritis and insomnia who presented to the ER with upper abdominal pain ongoing since Thursday (4 days).? she reported that the pain was mostly in the epigastric and right upper quadrant area and was 9/10 in intensity.? It was initially associated with some nausea but no significant amount of vomiting.? The next day the pain had improved with down to a 5/10 intensity but was accompanied by headaches, body aches fevers and chills.? She thought that she was having viral syndrome.? Her symptoms improved the next day and she thought she was in the clear.? Following day she had some [place] onion soup after which eating she had more severe pain.? The pain was more constant and a 9/10 in intensity again.? Pain was throbbing and aching in nature.? On palpation has pain as directly in the right upper quadrant.? She had no preceding symptoms or prodrome of symptoms prior to Thursday.? She denies any associated chest pain or shortness of breath.? She has not had any recent weight changes.? She denies any jaundice.? In the ER CT scan was performed which demonstrate nonspecific mild intrahepatic and extrahepatic bile duct dilatation.? Ultrasound of gallbladder demonstrated contracted gallbladder with gallstones but patient did have significant sonographic Simon sign. Interval Hx:05/28/2023 Pt was seen around 1600, today, she is has been in procedure for most of the day, she is awake, anxious, c/o of ongoing RUQ pain, specifically where her CT guided hepatic abscess drain has been placed. Denies any n/v, chest pain or SOB at this time. She has multiple request for pain medication. 05/29/2023: Patient seen this morning she is awake lying in bed, in no acute distress. She denies any overnight once her pain was managed, she states she feels so much better than she did s/p: Hepatic drain placement. She admits to ongoing tenderness to drain site, she denies any other complaints of chest pain nausea vomiting fever chills. Review of Systems Review of Systems: All systems reviewed & are unremarkable except as noted in HPI and below Exam Const: General: cooperative, comfortable and awake Orientation/consciousness: patient oriented x3 Other: Obese, no acute distress, appears stated age HENMT: Head: normal to inspection Ears: hearing grossly normal bilaterally Mouth: Yes Normal oral and palatal mucosa present Other: Mucous membranes moist intact, no oral pharyngeal erythema Eyes: General: appearance normal, both eyes and all related structures Sclera: sclerae normal ( No scleral icterus) Pupils: Equal, round and reactive pupils present EOM: EOMs intact bilaterally Other: No scleral icterus, no conjunctival pallor Neck: Neck: normal visual inspection, supple and no JVD Other: Large neck circumference, no lymphadenopathy, supple Chest: Chest palpation & inspection: normal inspection of the chest Resp: Effort & Inspection: normal respiratory effort Auscultation: clear to auscultation bilaterally Other: Clear to auscultation bilaterally, no increased work of breathing Cardio: Rate: regular rate Rhythm: regular rhythm Other: Regular rate, regular rhythm, 2+ bilateral radial pedal pulses GI: Inspection: normal to inspection Auscultation: normal bowel sounds Other: Abdomen mild distention, moderate point tenderness to drain site, drain is patent, has been emptied. Skin: General skin exam: normal color and no jaundice Other: No jaundice, no pallor Neuro: General: patient oriented x3 Cranial nerves: Yes Equal, round and reactive pupils present Speech: normal speech Motor exam (neuro): 5/5 motor strength present throughout Sensory Exam: normal sensation Other: Alert oriented, speech is clear Extr
[2023-05-29 14:00] VITALS: BP 148/66; PULSE 88; RESP 16; TEMP 36.7; O2SAT 98
[2023-05-29] MEDS: PIPERACILLIN/TAZ 4.5G/NS 100ML 4.5 GM/100 ML BAG IVPB ×2 (17:03→23:45)
[2023-05-29 20:00] VITALS: O2SAT 98
[2023-05-29] MEDS: traZODone HCL 50 MG TABLET 100 MG PO (20:15)
[2023-05-29 21:19] VITALS: BP 145/72; PULSE 75; RESP 16; TEMP 36.1; O2SAT 97
[2023-05-30] MEDS: DEXTROSE 5%/LACTATED RINGERS 1,000 ML 120 ML IV CONT ×2 (01:15→23:27)
[2023-05-30 05:31] VITALS: BP 156/84; PULSE 88; RESP 16; TEMP 36.2; O2SAT 97
[2023-05-30] MEDS: PIPERACILLIN/TAZ 4.5G/NS 100ML 4.5 GM/100 ML BAG IVPB ×4 (05:47→23:28)
[2023-05-30] MEDS: MORPHINE SULFATE (*CRX) 2 MG/ML INJ IV PUSH ×2 (07:48→09:46)
[2023-05-30] MEDS: hydroCHLOROthiazide 25 MG TABLET PO (07:49)
[2023-05-30] MEDS: ALPRAZolam (*CRX) 0.25 MG TABLET PO (07:49)
[2023-05-30] MEDS: ENOXAPARIN 40 MG/0.4 ML SYRINGE SUB-Q (07:49)
[2023-05-30] MEDS: lisinopriL 10 MG TABLET PO (07:49)
--- NOTE | 2023-05-30 10:30 | WPDPN ---
Progress Note: A&P Assessment and Plan (1) Liver abscess: Code(s): K75.0 - Abscess of liver Status: Acute Assessment and Plan: Liver abscess has been drained with a percutaneously placed drain by CT guidance. Will repeat a CT scan with IV contrast today to see if the abscess has resolved. If it has resolved and likely remove the drain tomorrow. Will transition over to oral narcotic pain medicines primarily with oxycodone and use only morphine IV if needed for breakthrough pain. (2) Fever and chills: Code(s): R50.9 - Fever, unspecified Status: Resolved Assessment and Plan: Likely due to the liver abscess. Continue Zosyn for IV antibiotics. She will need to continue a course of oral antibiotics at home for least 2 weeks. No evidence of acute cholecystitis by imaging. (3) Cholelithiasis: Qualifiers: Biliary obstruction: without biliary obstruction Cholecystitis presence: without cholecystitis Cholelithiasis location: gallbladder Qualified Code(s): K80.20 - Calculus of gallbladder without cholecystitis without obstruction Code(s): K80.20 - Calculus of gallbladder without cholecystitis without obstruction Status: Acute Assessment and Plan: Gallstones are noted on imaging. She may have chronic cholecystitis issues but nothing seems to be acute. Would recommend addressing any issues of chronic cholecystitis as an outpatient after she has resolved her liver abscess. (4) Intrahepatic bile duct dilation: Code(s): K83.8 - Other specified diseases of biliary tract Status: Acute Assessment and Plan: No clear etiology for any mild common bile duct dilatation. No gallstones were seen on MRCP in the common bile duct. Continue to monitor. Subjective Date/time seen: 05/30/23 10:30 Interval history: Patient lying comfortably in bed today. Only complaint is some epigastric and right upper quadrant abdominal pain. She has been tolerating some food and a low-fat diet. So far workup with CT scan, MRCP, and HIDA scan has shown no evidence of acute cholecystitis although gallstones are noted in a contracted gallbladder. A right liver abscess was seen and this has been percutaneously drained in Radiology. Cultures are still pending on abscess cavity and the patient remains on Zosyn. Exam Const: General: comfortable and no acute distress Resp: Effort & Inspection: normal respiratory effort Auscultation: clear to auscultation bilaterally Cardio: Rate: regular rate Rhythm: regular rhythm GI: Other: Abdomen is soft nondistended. She has some mild tenderness to palpation the right upper quadrant the abdomen and the epigastric region with a drain is placed. Output from the drain is about 30cc overnight which was slightly blood tinged serous. Drain site is clean and dry. No generalized peritoneal signs. Psych: Mental Status: mental status grossly normal Affect: normal affect Objective Data Vital Signs Vital Signs: Vital Signs - 24 hr 05/29/23 14:00 05/29/23 20:00 05/29/23 21:19 Temperature 36.7 C 36.1 C L Pulse Rate 88 75 Respiratory Rate 16 16 Blood Pressure 148/66 H 145/72 H Pulse Oximetry 98 98 97 Oxygen Delivery Room Air 05/30/23 05:31 05/30/23 07:50 Temperature 36.2 C L Pulse Rate 88 Respiratory Rate 16 Blood Pressure 156/84 H Pulse Oximetry 97 Oxygen Delivery Room Air Intake/Output Intake/Output: Intake & Output 05/27/23 05/28/23 05/29/23 05/30/23 23:59 23:59 23:59 23:59 Intake Total 1100 2860 1890 640 Output Total 30 40 Balance 1100 2830 1850 640 Meds/Results Medications: Active Medications Generic Name Dose Route Start Last Admin Trade Name Freq PRN Reason Stop Dose Admin Acetaminophen 1,000 mg 05/30/23 10:24 Acetaminophen 500 Mg Tablet PO Q6H PRN Mild Pain (1-3) or Fever Hydrocodone Bitart/Acetaminophen 1 tab 05/30/23 10:24 Hydrocodone/Acetaminophen (*Crx) 5-32
[2023-05-30 10:50] LABS: Basophils Percent Auto 0.5 % (0.2-1.2); Eosinophils Absolute Auto 0.1 K/mm3 (0-0.3); Eosinophils Percent Auto 1.1 % (0-4.4); Hematocrit 35.5 % (37.0-47.0); Hemoglobin 11.2 g/dL (12.0-15.0); Immature Granulocyte Absolute 0.05 K/mm3 (0.00-0.031); Immature Granulocyte Percent A 0.8 % (0-0.5); Lymphocytes Absolute Auto 1.06 K/mm3 (0.9-3.2); Lymphocytes Percent Auto 16.4 % (18.3-44.2); Mean Corpuscular HGB Conc 31.5 g/dl (32-36); Mean Corpuscular Hemoglobin 28.2 pg (26-34); Mean Corpuscular Volume 89.4 fl (80-100); Mean Platelet Volume 9.5 fl (7.4-10.4); Monocytes Absolute Auto 0.5 K/mm3 (0.1-0.6); Monocytes Percent Auto 7.7 % (2.6-8.5); Neutrophils Absolute Auto 4.8 K/mm3 (1.3-6.7); Neutrophils Percent Auto 73.5 % (45.5-73.1); Platelet Count Result 260 k/mm3 (150-375); Red Blood Count 3.97 M/mm3 (4.2-5.4); Red Cell Distribution Width 14.1 % (11.5-14.5); White Blood Count 6.5 K/mm3 (4.5-10.0)
[2023-05-30 11:01] LABS: Alanine Aminotransferase 55 U/L (6-35); Albumin Level 3.4 g/dL (3.5-5.1); Alkaline Phosphatase 256 U/L (38-126); Anion Gap 1 mmol/L (8-16); Aspartate Amino Transferase 47 U/L (14-36); Bilirubin,Total 0.8 mg/dL (0.2-1.3); Blood Urea Nitrogen 12 mg/dL (7-17); Carbon Dioxide 33 mmol/L (22-30); Chloride 101 mmol/L (98-107); Estimated CRCL calculation 50 ml/min; Estimated Glomerular Filt Rate > 60; Glucose 141 mg/dL (65-110); Potassium 3.6 mmol/L (3.4-5.0); Sodium 135 mmol/L (137-145)
[2023-05-30] MEDS: POTASSIUM CHLORIDE 20 MEQ ER TABLET 40 MEQ PO (11:23)
[2023-05-30] MEDS: oxyCODONE HCL (*CRX) 5 MG TAB IR PO ×2 (11:24→17:13)
--- NOTE | 2023-05-30 11:52 | PM.IMPN ---
Progress Note: A&P Assessment and Plan (1) Cholelithiasis: Qualifiers: Biliary obstruction: without biliary obstruction Cholecystitis presence: without cholecystitis Cholelithiasis location: gallbladder Qualified Code(s): K80.20 - Calculus of gallbladder without cholecystitis without obstruction Code(s): K80.20 - Calculus of gallbladder without cholecystitis without obstruction Status: Acute Assessment and Plan: Cholelithiasis without evidence of acute ? HIDA scan seems to show a patent cystic duct.? right liver abscess which could explain her fever and elevated white blood cell pt is being considered for cholecystectomy. (2) Fever and chills: Code(s): R50.9 - Fever, unspecified Status: Resolved Assessment and Plan: -continue to monitor vital signs (3) Intrahepatic bile duct dilation: Code(s): K83.8 - Other specified diseases of biliary tract Status: Acute Assessment and Plan: ?No common bile duct stone was seen. Subjective Date/time seen: 05/30/23 11:52 Interval history: . Interval history: Chief Complaint: Abdominal pain Narrative: 78-year-old relatively healthy female with a medical history of essential hypertension, anxiety, osteoarthritis and insomnia who presented to the ER with upper abdominal pain ongoing since Thursday (4 days).? she reported that the pain was mostly in the epigastric and right upper quadrant area and was 9/10 in intensity.? It was initially associated with some nausea but no significant amount of vomiting.? The next day the pain had improved with down to a 5/10 intensity but was accompanied by headaches, body aches fevers and chills.? She thought that she was having viral syndrome.? Her symptoms improved the next day and she thought she was in the clear.? Following day she had some [place] onion soup after which eating she had more severe pain.? The pain was more constant and a 9/10 in intensity again.? Pain was throbbing and aching in nature.? On palpation has pain as directly in the right upper quadrant.? She had no preceding symptoms or prodrome of symptoms prior to Thursday.? She denies any associated chest pain or shortness of breath.? She has not had any recent weight changes.? She denies any jaundice.? In the ER CT scan was performed which demonstrate nonspecific mild intrahepatic and extrahepatic bile duct dilatation.? Ultrasound of gallbladder demonstrated contracted gallbladder with gallstones but patient did have significant sonographic Simon sign. Interval Hx:05/28/2023? Pt was seen around 1600, today, she is has been in procedure for most of the day, she is awake, anxious, c/o of ongoing RUQ pain, specifically where her CT guided hepatic abscess drain has been placed. Denies any n/v, chest pain or SOB at this time. She has multiple request for pain medication. 05/29/2023: Patient seen this morning she is awake lying in bed, in no acute distress.? She denies any overnight once her pain was managed, she states she feels so much better than she did s/p:? Hepatic drain placement.? She admits to ongoing tenderness to drain site, she denies any other complaints of chest pain nausea vomiting fever chills. 05/30/2023: pt seen this am, she reports overnight events of ongoing pain/tenderness and discomfort to drain site(RUQ), along with mild nausea. She denies any chest pain, or SOB at this time. Gen surgery has been in to see the pt this am, plan to possible remove drain tomorrow, wants to transition patient to oral narcotic pain management with oxycodone, use morphine IV for breakthrough pain. Review of Systems Review of Systems: 12 systems were reviewed with pertinent positives and negatives per HPI. Except as documented in the HPI, all other systems were reviewed and are negative. Exam Narrative: Weight 79.5 kg BMI 32.1 Const: General: cooperative, comfortable, awake and acute distress mild Orientation/consciousness:
[2023-05-30] MEDS: HYDROcodone/acetaminophen (*CRX) 5-325 MG TABLET 1 TAB PO ×2 (13:59→20:22)
[2023-05-30 14:00] VITALS: BP 156/71; PULSE 63; RESP 18; TEMP 37.2; O2SAT 98
[2023-05-30] MEDS: traZODone HCL 50 MG TABLET 100 MG PO (20:22)
[2023-05-30 20:48] VITALS: BP 139/72; PULSE 78; RESP 16; TEMP 36.6; O2SAT 98
[2023-05-31 05:16] VITALS: BP 157/80; PULSE 69; RESP 16; TEMP 36.6; O2SAT 97
[2023-05-31] MEDS: PIPERACILLIN/TAZ 4.5G/NS 100ML 4.5 GM/100 ML BAG IVPB ×2 (05:22→14:16)
[2023-05-31] MEDS: oxyCODONE HCL (*CRX) 5 MG TAB IR PO ×3 (05:27→15:35)
[2023-05-31 06:22] LABS: Basophils Percent Auto 0.2 % (0.2-1.2); Eosinophils Percent Auto 0.4 % (0-4.4); Hematocrit 34.1 % (37.0-47.0); Hemoglobin 10.9 g/dL (12.0-15.0); Immature Granulocyte Absolute 0.07 K/mm3 (0.00-0.031); Immature Granulocyte Percent A 0.7 % (0-0.5); Lymphocytes Absolute Auto 1.33 K/mm3 (0.9-3.2); Lymphocytes Percent Auto 13.1 % (18.3-44.2); Mean Corpuscular Hemoglobin 28.2 pg (26-34); Mean Corpuscular Volume 88.3 fl (80-100); Mean Platelet Volume 9.8 fl (7.4-10.4); Monocytes Absolute Auto 0.8 K/mm3 (0.1-0.6); Monocytes Percent Auto 7.5 % (2.6-8.5); Neutrophils Absolute Auto 7.9 K/mm3 (1.3-6.7); Neutrophils Percent Auto 78.1 % (45.5-73.1); Platelet Count Result 299 k/mm3 (150-375); Red Blood Count 3.86 M/mm3 (4.2-5.4); Red Cell Distribution Width 13.9 % (11.5-14.5); White Blood Count 10.1 K/mm3 (4.5-10.0)
[2023-05-31 06:36] LABS: Alanine Aminotransferase 75 U/L (6-35); Albumin Level 3.4 g/dL (3.5-5.1); Alkaline Phosphatase 310 U/L (38-126); Anion Gap 3 mmol/L (8-16); Aspartate Amino Transferase 52 U/L (14-36); Bilirubin,Total 0.7 mg/dL (0.2-1.3); Blood Urea Nitrogen 7 mg/dL (7-17); Calcium 8.9 mg/dL (8.4-10.2); Carbon Dioxide 32 mmol/L (22-30); Chloride 99 mmol/L (98-107); Estimated CRCL calculation 57 ml/min; Estimated Glomerular Filt Rate > 60; Glucose 140 mg/dL (65-110); Potassium 3.8 mmol/L (3.4-5.0); Sodium 134 mmol/L (137-145)
[2023-05-31] MEDS: lisinopriL 10 MG TABLET PO (08:55)
[2023-05-31] MEDS: hydroCHLOROthiazide 25 MG TABLET PO (08:55)
[2023-05-31] MEDS: HYDROcodone/acetaminophen (*CRX) 5-325 MG TABLET 1 TAB PO (08:55)
[2023-05-31] MEDS: ENOXAPARIN 40 MG/0.4 ML SYRINGE SUB-Q (08:56)
[2023-05-31] MEDS: ALPRAZolam (*CRX) 0.25 MG TABLET PO (08:56)
[2023-05-31 09:10] VITALS: O2SAT 98
--- NOTE | 2023-05-31 10:13 | PM.PNGS ---
Progress Note: A&P Assessment and Plan (1) Liver abscess: Code(s): K75.0 - Abscess of liver Status: Acute Assessment and Plan: CT reviewed with near complete resolution of liver abscess, drain pulled at bedside, continue antibiotics for 2 weeks as outpatient, follow-up with Dr. Phelan in 2 weeks (2) Cholelithiasis: Qualifiers: Biliary obstruction: without biliary obstruction Cholecystitis presence: without cholecystitis Cholelithiasis location: gallbladder Qualified Code(s): K80.20 - Calculus of gallbladder without cholecystitis without obstruction Code(s): K80.20 - Calculus of gallbladder without cholecystitis without obstruction Status: Acute Assessment and Plan: Asymptomatic at this point, will see Dr. Phelan is outpatient Subjective Subjective Date/Time Seen: 05/31/23 10:13 Interval history: no acute issues, feels good, wants to go home Review of Systems Review of Systems: All systems reviewed & are unremarkable except as noted in HPI and below Exam Const: General: cooperative, comfortable and no acute distress Resp: Auscultation: clear to auscultation bilaterally Cardio: Rate: regular rate Rhythm: regular rhythm GI: Inspection: normal to inspection and non-distended GI Palp: No abdominal tenderness, Yes Soft to palpation, No Tenderness to palpation present (GI), No Guarding due to palpation present (GI) and No Rigid due to palpation Other: RUQ drain c scant output, removed at bedside Objective Data Vital Signs Vital Signs: Vital Signs - 24 hr 05/30/23 14:00 05/30/23 20:48 05/30/23 20:00 Temperature 37.2 C 36.6 C Pulse Rate 63 78 Respiratory Rate 18 16 Blood Pressure 156/71 H 139/72 Pulse Oximetry 98 98 Oxygen Delivery Room Air 05/31/23 05:16 05/31/23 09:10 Temperature 36.6 C Pulse Rate 69 Respiratory Rate 16 Blood Pressure 157/80 H Pulse Oximetry 97 98 Oxygen Delivery Room Air Intake/Output Intake/Output: Intake & Output 05/28/23 05/29/23 05/30/23 05/31/23 23:59 23:59 23:59 23:59 Intake Total 2860 1890 2552 100 Output Total 30 40 Balance 2830 1850 2552 100 Meds/Results Medications: Active Medications Generic Name Dose Route Start Last Admin Trade Name Freq PRN Reason Stop Dose Admin Acetaminophen 1,000 mg 05/30/23 10:24 Acetaminophen 500 Mg Tablet PO Q6H PRN Mild Pain (1-3) or Fever Hydrocodone Bitart/Acetaminophen 1 tab 05/30/23 10:24 05/31/23 08:55 Hydrocodone/Acetaminophen (*Crx) 5-325 Mg Tablet PO 1 tab Q4H PRN Administration Pain Rated 4-6 Alprazolam 0.25 mg 05/27/23 22:11 05/31/23 08:56 Alprazolam (*Crx) 0.25 Mg Tablet PO 0.25 mg DAILY PRN Administration Anxiety Enoxaparin Sodium 40 mg 05/28/23 09:00 05/31/23 08:56 Enoxaparin 40 Mg/0.4 Ml Syringe SUB-Q 40 mg DAILY PAUL Administration Hydralazine HCl 10 mg 05/27/23 22:12 Hydralazine Hcl 20 Mg/Ml Vial IV PUSH Q4H PRN SBP greater than 160 Hydrochlorothiazide 25 mg 05/28/23 09:00 05/31/23 08:55 Hydrochlorothiazide 25 Mg Tablet PO 25 mg DAILY PAUL Administration Dextrose/Lactated Ringer's 1,000 mls @ 75 mls/hr 05/27/23 19:20 05/30/23 23:27 Dextrose 5%/Lactated Ringers IV CONT 120 mls/hr .[id number] PAUL Administration Piperacillin Sod/Tazobactam Sod 4.5 gm in 100 mls @ 200 mls/hr 05/29/23 18:00 05/31/23 05:52 Zosyn 4.5 Gm/Ns 100 Ml IVPB Infused Q6H PAUL Infusion Lisinopril 10 mg 05/28/23 09:00 05/31/23 08:55 Lisinopril 10 Mg Tablet PO 10 mg DAILY PAUL Administration Morphine Sulfate 4 mg 05/30/23 10:24 Morphine Sulfate (*Crx) 4 Mg/Ml Inj IV PUSH Q4H PRN Pain Rated 7-10 Ondansetron HCl 4 mg 05/27/23 14:59 Ondansetron Inj 4 Mg/2 Ml Vial IV PUSH Q4H PRN Nausea Oxycodone HCl 5 mg 05/30/23 10:24 05/31/23 09:43 Oxycodone Hcl (*Crx) 5 Mg Tab Ir PO 5 mg Q4H PRN Administration Pain Rated 7-1
[2023-05-31 13:35] VITALS: BP 147/76; PULSE 73; RESP 17; TEMP 36.8; O2SAT 98
--- NOTE | 2023-05-31 14:37 | PM.DS ---
DS: Admitting Diagnosis Discharge Date 05/31/2023 Admitting Diagnosis Cholelithiasis DS: Discharge Diagnosis Discharge Diagnosis (1) Liver abscess: Code(s): K75.0 - Abscess of liver Status: Acute (2) Fever and chills: Code(s): R50.9 - Fever, unspecified Status: Resolved (3) Cholelithiasis: Qualifiers: Biliary obstruction: without biliary obstruction Cholecystitis presence: without cholecystitis Cholelithiasis location: gallbladder Qualified Code(s): K80.20 - Calculus of gallbladder without cholecystitis without obstruction Code(s): K80.20 - Calculus of gallbladder without cholecystitis without obstruction Status: Acute (4) Intrahepatic bile duct dilation: Code(s): K83.8 - Other specified diseases of biliary tract Status: Acute DS: Summary Hospital Course Reason for hospitalization: 78-year-old relatively healthy female with a medical history of essential hypertension, anxiety, osteoarthritis and insomnia who presented to the ER with upper abdominal pain ongoing since Thursday (4 days). Hospital Course: HPI, pt reported that the pain was mostly in the epigastric and right upper quadrant area and was 9/10 in intensity.? It was initially associated with some nausea but no significant amount of vomiting.? The next day the pain had improved with down to a 5/10 intensity but was accompanied by headaches, body aches fevers and chills.? She thought that she was having viral syndrome.? Her symptoms improved the next day and she thought she was in the clear.? Following day she had some Spanish onion soup after which eating she had more severe pain.? The pain was more constant and a 9/10 in intensity again.? Pain was throbbing and aching in nature.? On palpation has pain as directly in the right upper quadrant.? She had no preceding symptoms or prodrome of symptoms prior to Thursday.? She denies any associated chest pain or shortness of breath.? She has not had any recent weight changes.? She denies any jaundice.? In the ER CT scan was performed which demonstrate nonspecific mild intrahepatic and extrahepatic bile duct dilatation.? Ultrasound of gallbladder demonstrated contracted gallbladder with gallstones but patient did have significant sonographic Simon sign. Interval Hx:05/28/2023? Pt was seen around 1600, today, she is has been in procedure for most of the day, she is awake, anxious, c/o of ongoing RUQ pain, specifically where her CT guided hepatic abscess drain has been placed. Denies any n/v, chest pain or SOB at this time. She has multiple request for pain medication. 05/29/2023: Patient seen this morning she is awake lying in bed, in no acute distress.? She denies any overnight once her pain was managed, she states she feels so much better than she did s/p:? Hepatic drain placement.? She admits to ongoing tenderness to drain site, she denies any other complaints of chest pain nausea vomiting fever chills. 05/30/2023:?pt seen this am, she reports overnight events of ongoing pain/tenderness? and discomfort to drain site(RUQ), along with mild nausea. She denies any chest pain, or SOB at this time. Gen surgery has been in to see the pt this am, plan to possible remove drain tomorrow, wants to transition patient to oral narcotic pain management with oxycodone, use morphine IV for breakthrough pain. 05/31/2023: pt seen this a.m she denies any overnight events, she reports moderte discomfort this morning when her drain was removed. Pt states she also experienced mild nausea, denies any vomiting. She has requested to be discharge home to complete her recovery process, citing she will follow up as an out-pt. Status at Discharge Functional status at discharge: independent ambulation Overall status at discharge: patient is progressing back to baseline Time Spent with Patient Time attestation: Total time spent providing and/or coordinating discharge services: Time spent: Less than 30 minutes
== END 2023-05-31 15:55 | disposition home or self-care (01) | DRG 443 ==
LOC: ANHED 14:54 → ANH3MEDSUR 16:16
PROVIDERS: Emergency Medicine; Nurse Practitioner Family; Surgery; Admitting Provider Internal Medicine; Emergency Provider Physician Assistant; Visit Provider Nurse Practitioner
DX: K75.0 Abscess of liver (principal); K80.20 Calculus of gallbladder without cholecystitis without obstruction; Z20.822 Contact with and (suspected) exposure to COVID-19; F41.9 Anxiety disorder, unspecified; G47.00 Insomnia, unspecified; I10 Essential (primary) hypertension; K83.8 Other specified diseases of biliary tract; M19.90 Unspecified osteoarthritis, unspecified site; Z96.653 Presence of artificial knee joint, bilateral; Z98.41 Cataract extraction status, right eye; Z98.42 Cataract extraction status, left eye; Z96.1 Presence of intraocular lens
CPT/HCPCS: 36415; 74177; 74183; 75989; 76376; 76705; 78227; 80053; 81001; 83605; 83690; 84484; 85025; 85610; 85730; 87070; 87075; 87205; 87637; 93005; 96361; 96365; 96366; 96375; 96376; 99285; A9270; A9537; A9577; C1729; C1769; G0378; J1650; J2270; J2543; J3480; J7030; J7040; J7121; Q9967

== ENCOUNTER 2023-07-15 09:54 | Outpatient (CLI) | payer MEDICARE, SELFPAY ==
[2023-07-15 10:25] LABS: Amylase 93 U/L (30-110)
== END 2023-07-15 09:55 | disposition home or self-care (01) ==
LOC: ANHSURGERY 10:00
PROVIDERS: Visit Provider Surgery
DX: K80.10 Calculus of gallbladder with chronic cholecystitis without obstruction (principal); Z01.818 Encounter for other preprocedural examination
CPT/HCPCS: 36415; 82150

== ENCOUNTER 2023-07-20 02:01 | Day surgery (SDC) | payer MEDICARE, SELFPAY ==
[2023-07-13 16:04] VITALS: BMI 31.4
--- NOTE | 2023-07-13 16:19 | PC.NURSE ---
Report to the Outpatient Waiting Room, entrance under the green pavilion located off [facility], at time __6:00AM on date _07/20/23 . Planned Procedure Time: ___7:30AM . Time changes happen often and if your time is changed the preop area will call you the afternoon before. - You and your visitor will be asked to self-screen and do not enter if you have any COVID symptoms. - A mask is optional within the hospital at this time. Patients may have clear liquids (water, carbonated beverages, clear teas, apple juice) until 3 hours prior to surgery with a maximum of 20 ounces. - No food from midnight until time of surgery. Take the following medications with a SIP of water the morning of surgery: ___ALPRAZOLAM NEEDED DO NOT STOP ANY OF YOUR OTHER PRESCRIPTION MEDICATIONS PRIOR TO SURGERY ?EXCEPT THE FOLLOWING Medications to discontinue per physician NONE Date to take last dose Please no make-up, nail bengali, hairspray, perfume, deodorant, or body powder the day of surgery. No jewelry (including any body piercings) or valuables the day of surgery, leave them at home. Please take a shower or bath the night before, or the morning of, surgery with an antibacterial soap. Wear comfortable, loose fitting clothing. - Jewelry must be removed prior to entering the operating room. Rings and piercings that are not removed may be cut off. - The hospital will not accept responsibility for valuables. - Please leave all valuables, including medications, at home the day of surgery. If you are going home after surgery, a licensed driver's license reviewing officer must drive you home. - NO public transportation without another adult if you receive anesthesia. - We recommend that an adult stay with you for 24 hours following discharge. - We also recommend that you do not drive, make important decision, drink alcoholic beverages, or take any drugs that were not prescribed by your health care provider for at least 24 hours after your discharge time. Follow any additional instructions given to you from your surgeon. If you or anyone in your household have experienced Covid symptoms in the past week, please notify your surgeon or the nurse liaison at the phone number below for possible testing. Telephone instructions given to ____PATIENT and asked if any additional questions and then verbalized understanding. Patient advised to call surgeon office or pre surgery nurse liaison [phone] if any additional questions.
[2023-07-20] VITALS (10 sets, daily range): BP systolic 122–134; BP diastolic 61–94; PULSE 72–93; RESP 12–20; TEMP 36.4–36.6; O2SAT 94–100
[2023-07-20] MEDS: LACTATED RINGERS 1,000 ML 30 ML IV CONT ×2 (06:31→09:06)
[2023-07-20] MEDS: ACETAMINOPHEN 500 MG TABLET 1000 MG PO (06:31)
--- NOTE | 2023-07-20 06:41 | WPDANESEPPF ---
Anes - Initial Pre Proc Eval Procedure: Operation Date: 07/20/23 07:30 Proposed Procedures p Laparoscopic Cholecystectomy, Possible Open - Yury Phelan MD Date/Time: 07/20/23 06:41 Surgeon: Yury Phelan MD Pre Op Diagnosis: chronic cholecystitis with cholelithiasis Patient Data Age: 78 Gender: F Height: 1.57 m Weight: 77.8 kg Last Vital Signs Temp 97.9 F 07/20/23 06:17 Pulse 88 07/20/23 06:17 Resp 18 07/20/23 06:17 BP 134/94 H 07/20/23 06:17 Pulse Ox 99 07/20/23 06:17 O2 Del Method Room Air 07/20/23 06:17 Allergies Allergy/AdvReac Type Severity Reaction Status Date / Time aspirin AdvReac N/V Verified 07/20/23 06:15 Home Medications Medication Instructions Recorded Confirmed Type alprazolam 0.25 mg tablet 0.25 mg PO DAILY PRN Anxiety 05/27/23 07/20/23 History atorvastatin 10 mg tablet 10 mg PO DAILY 05/27/23 07/20/23 History hydrochlorothiazide 25 mg tablet 25 mg PO QAM 05/27/23 07/20/23 History lisinopril 10 mg tablet 10 mg PO HS 05/27/23 07/20/23 History trazodone 100 mg tablet 100 mg PO HS 05/27/23 07/20/23 History Patient hx anesthesia problems: post op nausea/vomiting and other (Motion sickness. ) Family hx anesthesia problems: none Results Review: All pre-operative results and documents have been reviewed as part of the pre-operative evaluation. [facility] Past Medical History Medical History Anxiety Depression Essential hypertension Hyperlipidemia Migraine Osteoarthritis Surgical History Surgical History History of bilateral knee replacement Status post cataract extraction of both eyes with insertion of intraocular lens (~2022) Family History Family History Sibling Dementia Mother Dementia Father COPD (chronic obstructive pulmonary disease) Social History Social History (Reviewed 06/17/23 @ 13:01 by DO Shook Social History: Code status: Full code (patient would not want long-term ventilation or feeding tube) Surrogate decision maker: Smoking status: Never smoker Alcohol intake: current Alcohol use details: She rarely drinks alcohol and only in moderation. 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 Spiritual care concerns: No Anes - Eval Final PreProcedure Day of Procedure 07/20/23 06:41 Patient weight: obese Heart: regular rate and rhythm Lungs: clear to auscultation Airway: Mallampati scale and special considerations (Upper perm partial, lower removable partial. ) Neurological: alert and oriented Last oral intake: >/= 8 hours ASA classification: II Emergent: no Anesthetic plan: proceed Anesthesia type and monitoring: general ETT and standard monitoring Results Review: All pre-operative results and documents have been reviewed as part of the pre-operative evaluation. Informed Consent: The patient's anesthetic plan and its attendant risks and benefits were discussed with the patient/family/POA. Questions were solicited and answers provided to the satisfaction of the patient/family/POA.
[2023-07-20] MEDS: KETOROLAC 15 MG/ML VIAL (*BKC) IV PUSH (07:03)
--- NOTE | 2023-07-20 07:34 | PM.IMHP ---
H&P: HPI History of Present Illness Date/Time: 07/20/23 07:34 Chief Complaint: RUQ pain, chronic cholecystitis Narrative: Ms. Franco returns to the office for recheck after recent hospitalization for chronic cholecystitis and a liver abscess.? Percutaneous drain was placed during her hospitalization and removed during discharge.? She was discharged with oral course of Augmentin, which she has since completed. She's still experiencing intermittent right-sided abdominal pain, most prominent with eating red meat and sweets.? Had also been experiencing diarrhea, but this has improved some since completing the abx.? No recurrent fevers. Review of Systems Review of Systems: The remainder of the review of systems to include constitutional, HEENT, cardiovascular, respiratory, GI, , integumentary, musculoskeletal, endocrine, immunologic, hematologic, psychiatric, and neurologic are all negative except for which is mentioned above in the HPI. [facility] Past Medical History Medical History Anxiety Depression Essential hypertension Hyperlipidemia Migraine Osteoarthritis Surgical History Surgical History History of bilateral knee replacement Status post cataract extraction of both eyes with insertion of intraocular lens (~2022) Family History Family History Sibling Dementia Mother Dementia Father COPD (chronic obstructive pulmonary disease) Social History Social History Social History: Code status: Full code (patient would not want long-term ventilation or feeding tube) Surrogate decision maker: Smoking status: Never smoker Alcohol intake: current Alcohol use details: She rarely drinks alcohol and only in moderation. 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 Spiritual care concerns: No Meds Home Medications and Allergies Home Medications Medication Instructions Recorded Confirmed Type alprazolam 0.25 mg tablet 0.25 mg PO DAILY PRN Anxiety 05/27/23 07/20/23 History atorvastatin 10 mg tablet 10 mg PO DAILY 05/27/23 07/20/23 History hydrochlorothiazide 25 mg tablet 25 mg PO QAM 05/27/23 07/20/23 History lisinopril 10 mg tablet 10 mg PO HS 05/27/23 07/20/23 History trazodone 100 mg tablet 100 mg PO HS 05/27/23 07/20/23 History Allergies Allergy/AdvReac Type Severity Reaction Status Date / Time aspirin AdvReac N/V Verified 07/20/23 06:15 Vital Signs Vital Signs - 24 hr 07/20/23 06:17 Temperature 36.6 C Pulse Rate 88 Respiratory Rate 18 Blood Pressure 134/94 H Pulse Oximetry 99 Oxygen Delivery Room Air Exam Const: General: comfortable and no acute distress HENMT: Ears: TM's normal bilaterally Face/Nose/Sinus: Normal nares present Mouth: Yes moist mucous membranes Eyes: General: appearance normal, both eyes and all related structures Sclera: sclerae normal Pupils: Equal, round and reactive pupils present EOM: EOMs intact bilaterally Neck: Neck: supple and no JVD Resp: Effort & Inspection: normal respiratory effort Auscultation: clear to auscultation bilaterally Cardio: Rate: regular rate Rhythm: regular rhythm GI: Other: Auscultation: normal bowel sounds Palpation/Pe
--- NOTE | 2023-07-20 07:39 | WPDHPUPDATE1 ---
History and Physical Update Update Date/Time: 07/20/23 07:39 History and Physical has been reviewed, including an updated exam of the patient. There are NO changes in the patient's condition. Risks, benefits, and alternatives have been discussed and questions answered. Patient agrees to proceed with procedure.
[2023-07-20] MEDS: ceFAZolin 2 GM/D5W 50 ML 2 GM/50 ML BAG IVPB (07:42)
[2023-07-20] MEDS: LIDO 1%/EPINEPHRINE 1:100,000 50 ML VIAL 20 ML INFILTRATE (08:02)
[2023-07-20] MEDS: BUPivacaine HCL 0.5% 10 ML AMP 20 ML INFILTRATE (08:03)
--- NOTE | 2023-07-20 09:20 | W.PM.PROC2 ---
Procedure Note - Detailed Date of Procedure 07/20/23 Pre-op Diagnosis chronic cholecystitis with cholelithiasis Post-op Diagnosis Same Procedure Performed Laparoscopic cholecystectomy Surgeon Yury Phelan MD Anesthesia General Findings Mildly chronically inflamed gallbladder with gallbladder wall thickening and omental adhesions to the gallbladder wall. Multiple small gallstones palpable within the gallbladder. Gallbladder and gallstones sent to pathology for examination. Changes consistent with prior percutaneous drainage of liver abscess. Description of Procedure After informed consent was obtained patient brought to the operating room she was placed supine position and general endotracheal anesthesia was administered. The abdomen was then prepped and draped usual sterile fashion. A time-out was then performed correctly identifying the patient as well as procedure to be performed. She was given perioperative IV antibiotics. I then proceeded to place a 5mm Optiview port in left upper quadrant under direct visualization. Once inside the abdomen insufflated to adequate pneumoperitoneum of 15mmHg of CO2. Once this is tender no adhesions around the umbilicus I placed a 5mm periumbilical trocar port and then with the camera in the periumbilical trocar port I looked up into the right upper quadrant to no adhesions in this area to obscure the view of the gallbladder. I then placed an epigastric 10mm trocar port and 2 right lateral subcostal 5mm trocar ports all under direct visualization. I then stripped down some omental adhesions of the gallbladder wall and then was able to hold the gallbladder at the dome elevate the gallbladder towards the right shoulder. I then continued stripping down the omental adhesions to the gallbladder wall until I could see the infundibular gallbladder. A 2nd grasper was then used to hold the gallbladder infundibulum. I then proceeded to dissect down on infundibular gallbladder away the visceroperitoneum and the omental adhesions and to identify the cystic duct. The cystic duct was then dissected out circumferentially. The cystic artery was identified dissected out circumferentially as well. The cystic duct node was identified and was removed and sent with the gallbladder from to pathology. I then dissected out circumferentially around the cystic artery. Posterior wall the gallbladder was dissected free of the liver bed until the critical view was obtained. I then stripped the cystic duct to make sure there were no stones within the cystic duct. I then placed 2 clips proximally cystic duct and 2 clips distally high on infundibular gallbladder. Cystic duct was then divided with Endo Elkin. A similar fashion cystic artery clipped and divided as well. Gallbladder was resected off the liver electrocautery. Unfortunately during 1 point the dissection the gallbladder wall was entered there was some bile that was spilled. No gallstones spilled. Once the gallbladder completely resected off the liver then placed into an Endo-Catch bag and brought out through the epigastric trocar port site. The gallbladder and stones were then was sent pathology for examination. Irrigated out the right upper quadrant the abdomen the gallbladder fossa copious amounts sterile saline solution. Hemostasis was good. I then proceeded to remove all the trocar ports under visualization and all port sites appeared hemostatic. I then allowed the abdomen to decompress. Area of the port sites and they were hemostatic. Then closed all the port sites utilizing a running subcuticular 4-0 Monocryl suture. The incisions were then cleaned the skin glue was applied. The patient tolerated the procedure well no complications. All sponges, needles, and instrument counts were correct at the end procedure. EBL was __50_cc. The patient was awakened and taken to recovery in stable and satisfactory condition. Implants None Estimated Blood Loss 50 Drains No Pac
[2023-07-20] MEDS: fentaNYL CITRATE INJ (*CRX) 100 MCG/2 ML VIAL 25 MCG IV PUSH ×4 (09:29→10:02)
--- NOTE | 2023-07-20 10:06 | SUR.PHASEI ---
100 - dr. kline at bedside talking with pt
[2023-07-20] MEDS: oxyCODONE HCL (*CRX) 5 MG TAB IR PO (10:24)
== END 2023-07-20 11:04 | disposition home or self-care (01) ==
PROVIDERS: Visit Provider Surgery
PROC: 0FT44ZZ Resection of Gallbladder, Percutaneous Endoscopic Approach (ICD-10-PCS; CPT 47562; principal; 2023-07-20 07:30)
DX: K80.10 Calculus of gallbladder with chronic cholecystitis without obstruction (principal); I10 Essential (primary) hypertension; E78.5 Hyperlipidemia, unspecified; F41.9 Anxiety disorder, unspecified; F32.A Depression, unspecified; E66.9 Obesity, unspecified; Z68.31 Body mass index [BMI] 31.0-31.9, adult
CPT/HCPCS: 47562; 88304; A9270; J0690; J1100; J1170; J1885; J2250; J2371; J2405; J2704; J3010; J7120

== ENCOUNTER 2023-09-11 09:31 | Outpatient (CLI) | payer MEDICARE, SELFPAY ==
[2023-09-15 05:43] LABS: CA-125 7 U/mL (<35)
== END 2023-09-11 09:32 | disposition home or self-care (01) ==
PROVIDERS: Visit Provider Obstetrics & Gynecology
DX: R97.1 Elevated cancer antigen 125 [CA 125] (principal); Z12.73 Encounter for screening for malignant neoplasm of ovary
CPT/HCPCS: 36415; 86304

== ENCOUNTER 2024-03-16 07:21 | Inpatient (IN) | payer MEDICARE, SELFPAY ==
--- NOTE | ~2024-03-16 | MR_ITS ---
EXAMINATION: MR MRCP wo/w con/w 3D wo ind DATE: 03/16/2024 14:51 INDICATION: Biliary duct dilatation. TECHNIQUE: Magnetic resonance imaging (MRI) of the abdomen was performed without and with 17 mL Multi Aung intravenous contrast. Sequences included coronal T2-weighted FS FSE, coronal T2-weighted FSE, a xial T1-weighted LAVA, coronal FS FIESTA, axial dual-echo T1-weighted SPGR, coronal lava-FLEX, sagitt al T2-weighted FSE, axial T2-weighted FSE, and axial DWI. Thick-slab T2-weighted FSE images were obta ined for magnetic resonance cholangiopancreatography (MRCP). Maximum intensity projection 3-D reconst ructions of the volumetric data were created by the technologist. Postcontrast sequences included cor onal LAVA-flex and time course of axial T1-weighted LAVA. COMPARISON: CT abdomen and pelvis 03/16/2024 FINDINGS: ABDOMEN MRI: There is moderate intrahepatic biliary duct dilatation. The spleen, pancreas, adrenal gl ands, and kidneys are normal. The gallbladder is absent. There are no dilated loops of bowel. There i s a diverticulum of the second portion of the duodenum. There is no ascites. ABDOMEN MRCP: The common duct is dilated to 14 mm. There is an 8 mm stone in the common bile duct. IMPRESSION: 1. 8 mm stone in the common bile duct with moderate intrahepatic and extrahepatic biliary duct dilata tion. Reviewed, dictated and finalized at location A. FINISHER IMPRESSION: 1. 8 mm stone in the common bile duct with moderate intrahepatic and extrahepat ic biliary duct dilatation.
--- NOTE | ~2024-03-16 | CT_ITS ---
CT of the Abdomen and Pelvis: Indication: Abdominal pain Technique: 2.5 mm axial scans were obtained through the abdomen and pelvis following intravenous adm inistration of 100 cc of Omnipaque 350. Dose reduction technique was used on this scan by utilizing a utomated exposure control and iterative reconstruction technique. The dose-length product (DLP) was 5 28.16 mGy-cm. COMPARISON: 05/30/2023 Findings: Scans through the lung bases are unremarkable. There is intrahepatic and extrahepatic biliary dilatation. Common bile duct measures 15 mm in diamete r. Cholecystectomy clips are present. The spleen, pancreas, adrenals and kidneys are within normal li mits. There are atherosclerotic calcifications of the aorta. No lymphadenopathy. No bowel obstruction or bowel wall thickening. There is an apparent prominent duodenal diverticulum n ear the ampulla of Vater. Images through the pelvis were performed. Urinary bladder unremarkable. No pelvic mass seen. No ascit es. Impression: Intrahepatic and extrahepatic biliary dilatation, as detailed above. This is possibly related to chol ecystectomy. 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 Luciano elate with LFTs and clinical symptomatology. Reviewed, dictated and finalized at [facility]. EMS NAVIGATOR Impression: Intrahepatic and extrahepatic biliary dilatation, as detailed above. This is po ssibly related to cholecystectomy. There is also a prominent duodenal diverticu lum at the region of the ampulla Vater. Correlate with LFTs and clinical sympto matology.
[2024-03-16 07:39] VITALS: BP 128/69; PULSE 64; RESP 20; TEMP 36.7; O2SAT 100
--- NOTE | 2024-03-16 07:50 | ED_ITS ---
HPI - General Adult General Chief complaint: Abdominal Pain Stated complaint: abd pain Time Seen by Provider: 03/16/24 07:25 History of Present Illness HPI narrative: 79-year-old female present to the emergency department for worsening upper abdominal pain. Patient reports she does have a history of cholecystectomy and also liver abscesses in May. Patient states that she began having worsening abdominal pain on Thursday. Patient states this pain does feel similar to those infections. Related Data Home Medications Medication Instructions Recorded Confirmed alprazolam 0.25 mg tablet 0.25 mg PO DAILY PRN Anxiety 05/27/23 03/16/24 atorvastatin 10 mg tablet 10 mg PO QHS 05/27/23 03/16/24 hydrochlorothiazide 25 mg tablet 25 mg PO QAM 05/27/23 03/16/24 lisinopril 10 mg tablet 10 mg PO HS 05/27/23 03/16/24 trazodone 100 mg tablet 100 mg PO HS 05/27/23 03/16/24 dicyclomine 10 mg capsule 10 mg PO QID PRN Pain 11/24/23 03/16/24 Allergies Allergy/AdvReac Type Severity Reaction Status Date / Time aspirin AdvReac N/V Verified 03/16/24 07:22 Review of Systems Review of Systems: All systems reviewed & are unremarkable except as noted in HPI and below PMFSH Past Medical History Medical History (Updated 03/16/24 @ 16:57 by Chris Canales MD) Anxiety Depression Essential hypertension Hyperlipidemia Left ovarian cyst Liver abscess May 2023 Migraine Osteoarthritis Surgical History Surgical History History of bilateral knee replacement History of cholecystectomy Hx of breast surgery lump removed from right breast back in Status post cataract extraction of both eyes with insertion of intraocular lens (~2022) Family History Family History Sibling Dementia Mother Dementia Breast cancer Father COPD (chronic obstructive pulmonary disease) Mother No problems noted. Social History Social History (Updated 03/16/24 @ 16:58 by Chris Canales MD) Social History: Lifelong nonsmoker. Occasional alcohol use. No drug use. Code status: Full code Surrogate decision maker: her son Ajith Smoking status: Never smoker Alcohol intake: former Alcohol use details: She rarely drinks alcohol and only in moderation. Substance use: never Substance use type: does not use Do You Feel Safe in your Home?: Yes Lack of Transportation: No Lack of Food: Never True Current Housing: I Have Housing Concerned About Future Housing: No Difficulty Paying Gas/Electric Bills: No Difficulty Paying for Meds: No Currently Unemployed: No Education: High School Diploma/GED Difficulty w/ Childcare or Family Care: No Living arrangements: with family Additional living arrangements comments: GRANDDAUGHTER Occupation/Education: retired Sexual Orientation (if Verbalized by the Patient): Straight or Heterosexual Spiritual care concerns: No Exam Narrative: APPEARANCE: Uncomfortable appearing HEAD: normocephalic, atraumatic. EYES: PERRLA/EOMI, conjunctivae clear. NOSE: Normal no drainage EARS:TMS clear with good light reflex. THROAT: Pharynx clear, no exudate. NECK: Supple. No adenopathy, no masses. RESPIRATORY: Airway patent, respirations nonlabored. Clear to auscultation bilaterally, no rales, rhonchi, wheezing. CARDIOVASCULAR: Regular rate and rhythm without murmurs rubs or gallops. ABDOMINAL: Upper abdominal tenderness to palpation MUSCULOSKELETAL: Moves all extremities. Strength/ROM intact, No edema, No calf tenderness. NEURO: Alert. Cranial nerves II through XII intact. Grossly intact SKIN: Warm, dry. Normal Color Course Vital Signs Vital signs: Vital Signs Temperature 98.0 F 03/16/24 07:39 Pulse Rate 64 03/16/24 07:39 Respiratory Rate 20 03/16/24 07:39 Blood Pressure 128/69 03/16/24 07:39 Pulse Oximetry 100 03/16/24 07:39 Temperature 98.1 F 03/16/24 14:00 Pulse Rate 75 03/16/24 14:00 Respiratory Rate 18 03/16/24 14:00 Blood Pressure 153/70 H 03/16/24 14:00 Pulse Oximetry 94 03/16/24 14:00 Oxygen Delivery Room Air 03/16/24 13:16 Medical Decision Making [facility] Narrative Medical decision making narrative: 71-year-old female presented emergency department for evaluation for acute onset of upper abdominal pain. Patient is afebrile with no leukocytosis and hemoglobin of 13 patient does have possible elevations of her T bili AST ALT and alk-phos. Patient does have history of cholecystectomy and has had no subsequent labs since the cholecystectomy. Patient's urine was positive for leukocyte esterase and white blood cells urine culture was ordered. 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 Case was discussed with GI and patient will be admitted with GI consult for an MRCP, MRCP was ordered from the emergency department. Case was discussed with hospitalist patient was accepted for admission. Patient was comfortable with the plan for admission and was feeling improved after IV pain medications. Differential Diagnosis Differential Diagnosis: Colitis, diverticulitis, gastric ulcer, retained gallstone Vital Signs Vital Signs: Vital Signs Temperature 98.0 F 03/16/24 07:39 Pulse Rate 64 03/16/24 07:39 Respiratory Rate 20 03/16/24 07:39 Blood Pressure 128/69 03/16/24 07:39 Pulse Oximetry 100 03/16/24 07:39 Temperature 98.1 F 03/16/24 14:00 Pulse Rate 75 03/16/24 14:00 Respiratory Rate 18 03/16/24 14:00 Blood Pressure 153/70 H 03/16/24 14:00 Pulse Oximetry 94 03/16/24 14:00 Oxygen Delivery Room Air 03/16/24 13:16 Lab Data Lab results reviewed: Yes I reviewed the patient's lab results. 03/16/24 07:47 03/16/24 07:47 Labs: Lab Results 03/16/24 03/16/24 Range/Units 07:47 07:53 WBC 8.7 (4.5-10.0) K/mm3 RBC 4.53 (4.2-5.4) M/mm3 Hgb 13.0 (12.0-15.0) g/dL Hct 40.0 (37.0-47.0) % MCV 88.3 (80-100) fl MCH 28.7 (26-34) pg MCHC 32.5 (32-36) g/dl RDW 14.1 (11.5-14.5) % Plt Count 268 (150-375) k/mm3 MPV 9.6 (7.4-10.4) fl Immature Gran % (Auto) 0.5 (0-0.5) % Neut % (Auto) 81.2 H (45.5-73.1) % Lymph % (Auto) 12.3 L (18.3-44.2) % Evans % (Auto) 5.5 (2.6-8.5) % Eos % (Auto) 0.2 (0-4.4) % Baso % (Auto) 0.3 (0.2-1.2) % Lymph # (Auto) 1.07 (0.9-3.2) K/mm3 Evans # (Auto) 0.5 (0.1-0.6) K/mm3 Eos # (Auto) 0.0 (0-0.3) K/mm3 Baso # (Auto) 0.0 (0.0-0.1) K/mm3 Abs Immat Gran (auto) 0.04 H (0.00-0.031) K/mm3 Absolute Neuts (auto) 7.1 H (1.3-6.7) K/mm3 Absolute Nucleated RBC 0.000 (0.0-0.012) K/mm3 Nucleated RBC % 0.0 (0.0-0.2) % PT 12.6 (11.1-14.7) Seconds INR 0.9 APTT 25.2 (22.3-36.8) Seconds Sodium 135 L (137-145) mmol/L Potassium 3.6 (3.4-5.0) mmol/L Chloride 100 (98-107) mmol/L Carbon Dioxide 31 H (22-30) mmol/L Anion Gap 4 (4-12) mmol/L BUN 14 D (7-17) mg/dL Creatinine 0.70 (0.7-1.0) mg/dL Estim Creat Clear Calc 56 ml/min Estimated GFR > 60 (59 - ) Glucose 162 H (65-110) mg/dL Calcium 9.1 (8.4-10.2) mg/dL Total Bilirubin 2.1 H (0.2-1.3) mg/dL AST 687 H (14-36) U/L ALT 555 H (6-35) U/L Alkaline Phosphatase 542 H (38-126) U/L Total Protein 7.0 (6.3-8.2) g/dL Albumin 4.0 (3.5-5.1) g/dL Lipase 84 (23-300) U/L Urine Color Dark yellow (Yellow) Urine Appearance Cloudy H (Clear) Urine pH 7.5 (5.0-9.0) Ur Specific [place] 1.021 (1.001-1.035) Urine Protein 1+ H (Negative) mg/dL Urine Glucose (UA) Negative (Negative) mg/dL Urine Ketones Trace H (Negative) mg/dL Ur Blood (Man) Negative (Negative) Urine Nitrate Negative (Negative) Urine Bilirubin 2+ H (Negative) Urine Urobilinogen 2.0 H (<2.0) mg/dL Leukocyte Esterase Rfl 1+ H (Negative) MARY/UL Urine RBC 0-2 (0-2) /hpf Urine WBC 6-10 H (0-3) /hpf Ur Squamous Epith Cells Moderate (Few) /hpf Urine Bacteria Rare /hpf Urine Casts 3-5 Imaging Data Radiologist's impression: Impressions Abdomen/Pelvis CT 03/16/24 09:10 Impression: Intrahepatic and extrahepatic biliary dilatation, as detailed above. This is possibly related to cholecystectomy. 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 Correlate with LFTs and clinical symptomatology. Discharge Plan Discharge Clinical Impression: Intrahepatic bile duct dilation, Abdominal pain Patient Disposition: Still a Patient Condition: Serious
[2024-03-16] MEDS: HYDROmorphone HCL INJ (*CRX) 1 MG/ML SYR 0.5 MG IV PUSH (07:56)
[2024-03-16 07:57] LABS: Basophils Percent Auto 0.3 % (0.2-1.2); Eosinophils Percent Auto 0.2 % (0-4.4); Immature Granulocyte Absolute 0.04 K/mm3 (0.00-0.031); Immature Granulocyte Percent A 0.5 % (0-0.5); Lymphocytes Absolute Auto 1.07 K/mm3 (0.9-3.2); Lymphocytes Percent Auto 12.3 % (18.3-44.2); Mean Corpuscular HGB Conc 32.5 g/dl (32-36); Mean Corpuscular Hemoglobin 28.7 pg (26-34); Mean Corpuscular Volume 88.3 fl (80-100); Mean Platelet Volume 9.6 fl (7.4-10.4); Monocytes Absolute Auto 0.5 K/mm3 (0.1-0.6); Monocytes Percent Auto 5.5 % (2.6-8.5); Neutrophils Absolute Auto 7.1 K/mm3 (1.3-6.7); Neutrophils Percent Auto 81.2 % (45.5-73.1); Platelet Count Result 268 k/mm3 (150-375); Red Blood Count 4.53 M/mm3 (4.2-5.4); Red Cell Distribution Width 14.1 % (11.5-14.5); White Blood Count 8.7 K/mm3 (4.5-10.0)
[2024-03-16 08:02] LABS: Add Urine Microscopic? YES; Appearance Urine Cloudy (Clear); Bacteria Urine Rare /hpf; Bilirubin Urine 2+ (Negative); Blood Urine Negative (Negative); Color Urine Dark Yellow (Yellow); Glucose Urine UA Negative (Negative); Ketones Urine Trace mg/dL (Negative); Leukocyte Esterase Ur 1+ LEU/UL (Negative); Nitrate Urine Negative (Negative); Protein Urine 1+ mg/dL (Negative); RBC Urine 0-2 /hpf (0-2); Specific Grav Ur 1.021 (1.001-1.035); Squamous Epithelial Cell Urine Moderate /hpf (Few); pH Urine 7.5 (5.0-9.0)
[2024-03-16 08:11] LABS: INR 0.9; Prothrombin Time 12.6 Seconds (11.1-14.7)
[2024-03-16 08:12] LABS: Partial Thromboplastin Time 25.2 Seconds (22.3-36.8)
[2024-03-16 08:33] VITALS: BP 99/58; PULSE 57; RESP 17; O2SAT 100
[2024-03-16 08:36] LABS: Alanine Aminotransferase 555 U/L (6-35); Alkaline Phosphatase 542 U/L (38-126); Anion Gap 4 mmol/L (4-12); Aspartate Amino Transferase 687 U/L (14-36); Bilirubin,Total 2.1 mg/dL (0.2-1.3); Blood Urea Nitrogen 14 mg/dL (7-17); Calcium 9.1 mg/dL (8.4-10.2); Carbon Dioxide 31 mmol/L (22-30); Chloride 100 mmol/L (98-107); Estimated CRCL calculation 56 ml/min; Estimated Glomerular Filt Rate > 60; Glucose 162 mg/dL (65-110); Potassium 3.6 mmol/L (3.4-5.0); Sodium 135 mmol/L (137-145)
[2024-03-16 10:23] VITALS: BP 145/85; PULSE 73; RESP 17; O2SAT 100
[2024-03-16] MEDS: MORPHINE SULFATE (*CRX) 2 MG/ML INJ IV PUSH ×6 (10:26→23:46)
--- NOTE | 2024-03-16 10:35 | PC.NURSE ---
Pt requesting us to call her granddaughter Ayleen at [phone] w/ any updates w/ POC.
[2024-03-16 10:41] LABS: Lipase 84 U/L (23-300)
[2024-03-16 11:32] VITALS: BP 139/72; PULSE 65; RESP 14; O2SAT 100
[2024-03-16 11:43] VITALS: BMI 31.6
--- NOTE | 2024-03-16 11:59 | ADMGEN ---
This patient, Ying Franco, was admitted to Medical Room 243-01. Patient/family oriented to hospital policies and general routines including ID bracelet, bed and alarms, visiting hours, pain management, procedures, bathroom and other care routines, personal items, smoking policy, room service/diet, and visiting hours. Information on how to activate the Rapid Response Team has been discussed. Patient/Family are encouraged to report perceived risks to care and to ask questions if they do not understand what they are told or what they should do.
[2024-03-16 14:00] VITALS: BP 153/70; PULSE 75; RESP 18; TEMP 36.7; O2SAT 94
--- NOTE | 2024-03-16 14:14 | P.HP_ITS ---
H&P: HPI History of Present Illness Date/Time: 03/16/24 14:14 Chief Complaint: Abdominal pain Narrative: 79yo female with anxiety/depression, HTN, HLD and migraines here for abdominal pain. Patient also has a hx of liver abscess in May 2023 from unclear source. She had a drain placed and treated with abx. She ultimately had a cholecystectomy in July. Since that time,she has developed left sided abdominal pain felt to be IBS and prescribed dicyclomine. She follows with a GI provider. Her last colonoscopy was 8 years ago. She was doing well until the day before admission. She had a large lunch so only a snack cake for dinner. She again developed abdominal pain but more toward the midline of the abdomen. No fevers, chills, vision changes, hearing changes, n/v, chest pain, palpitations, SOB, cough, diarrhea, constipation, dysuria or hematuria. She took trazodone and dicyclomine prior to bed but awoke around 130am with severe right sided abdominal pain. She took dicyclomine and 2 Aleve with minimal benefit. She was able to return to sleep but pain persisted when she woke so she came in by private care to the ED. In the ED, patient with normal vital signs. CBC, PT, PTT and BMP were unreveali ng. LFTs were elevated with TB 2.1, AST 687, ALT 555 and AP 542. Lipase was normal. UA abnormal and UCx collected. CT Abd/Pelvis with contrast showing intrahepatic and extrahepatic biliary dilatation possibly related to cholecystectomy. 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 The patient is s/p cholecystectomy. She was treated with narcotics and admitted for further care Review of Systems Review of Systems: All systems reviewed & are unremarkable except as noted in HPI and below PMFSH Past Medical History Medical History (Updated 03/16/24 @ 16:57 by Chris Canales MD) Anxiety Depression Essential hypertension Hyperlipidemia Left ovarian cyst Liver abscess May 2023 Migraine Osteoarthritis Surgical History Surgical History History of bilateral knee replacement History of cholecystectomy Hx of breast surgery lump removed from right breast back in 1959's Status post cataract extraction of both eyes with insertion of intraocular lens (~2022) Family History Family History Sibling Dementia Mother Dementia Breast cancer Father COPD (chronic obstructive pulmonary disease) Mother No problems noted. Social History Social History (Updated 03/16/24 @ 16:58 by Chris Canales MD) Social History: Lifelong nonsmoker. Occasional alcohol use. No drug use. Code status: Full code Surrogate decision maker: her son Ajith Smoking status: Never smoker Alcohol intake: former Alcohol use details: She rarely drinks alcohol and only in moderation. Substance use: never Substance use type: does not use Do You Feel Safe in your Home?: Yes Lack of Transportation: No Lack of Food: Never True Current Housing: I Have Housing Concerned About Future Housing: No Difficulty Paying Gas/Electric Bills: No Difficulty Paying for Meds: No Currently Unemployed: No Education: High School Diploma/GED Difficulty w/ Childcare or Family Care: No Living arrangements: with family Additional living arrangements comments: GRANDDAUGHTER Occupation/Education: retired Sexual Orientation (if Verbalized by the Patient): Straight or Heterosexual Spiritual care concerns: No Meds Home Medications and Allergies Home Medications Medication Instructions Recorded Confirmed Type alprazolam 0.25 mg tablet 0.25 mg PO DAILY PRN Anxiety 05/27/23 03/16/24 History atorvastatin 10 mg tablet 10 mg PO QHS 05/27/23 03/16/24 History hydrochlorothiazide 25 mg tablet 25 mg PO QAM 05/27/23 03/16/24 History lisinopril 10 mg tablet 10 mg PO HS 05/27/23 03/16/24 History trazodone 100 mg tablet 100 mg PO HS 05/27/23 03/16/24 History dicyclomine 10 mg capsule 10 mg PO QID PRN Pain 11/24/23 03/16/24 History Allergies Allergy/AdvReac Type Severity Reaction Status Date / Time aspirin AdvReac N/V Verified 03/16/24 07:22 Vital Signs Vital Signs - 24 hr 03/16/24 07:39 03/16/24 08:33 03/16/24 10:23 Temperature 98.0 F Pulse Rate 64 57 L 73 Respiratory Rate 20 17 17 Blood Pressure 128/69 99/58 L 145/85 H Pulse Oximetry 100 100 100 Oxygen Delivery 03/16/24 11:32 03/16/24 13:16 Temperature Pulse Rate 65 Respiratory Rate 14 Blood Pressure 139/72 Pulse Oximetry 100 Oxygen Delivery Room Air Exam Narrative: AF 98.0 139/72 65 14 100% ra Gen - well appearing female in no acute respiratory distress who is nontoxic- appearing lying semi recumbent in bed HEENT - normocephalic. Atraumatic. Pupils equal round and reactive. Extraocular motions intact. Sclera clear and anicteric. Nares patent. No oral lesions. Tachy mucous membranes. Tongue was midline. Palate kris symmetrically. No facial asymmetry. Neck - neck was supple. No dominant adenopathy, thyromegaly or masses. Chest - lungs are clear to auscultation bilaterally. No wheezes or crackles. Breast exam was deferred. CV - heart was regular rate and rhythm. S1-S2. No murmurs gallops or rubs. Abd - abdomen was soft. Nondistended. Positive bowel sounds. No organomegaly or masses. Pain to the left flank and more so RUQ area. No guarding or rebound Ext - no clubbing, cyanosis or edema. 2+ DP pulses bilaterally. Neuro - patient is alert and oriented x4. Strength is 5/5 in both upper and lower extremities. Cranial nerves 2-12 are intact. Speech is clear. Psych - normal mood and affect. Patient is pleasant and cooperative. Skin - warm and dry. No rashes noted. H&P: Results Labs Labs: Short CBC 03/16/24 Range/Units 07:47 WBC 8.7 (4.5-10.0) K/mm3 Hgb 13.0 (12.0-15.0) g/dL Hct 40.0 (37.0-47.0) % Plt Count 268 (150-375) k/mm3 [facility] 03/16/24 07:47 Sodium 135 L Potassium 3.6 Chloride 100 Carbon Dioxide 31 H BUN 14 D Creatinine 0.70 Glucose 162 H Calcium 9.1 Liver Function 03/16/24 Range/Units 07:47 Total Bilirubin 2.1 H (0.2-1.3) mg/dL AST 687 H (14-36) U/L ALT 555 H (6-35) U/L Alkaline Phosphatase 542 H (38-126) U/L Albumin 4.0 (3.5-5.1) g/dL Urine 03/16/24 Range/Units 07:53 Urine Color Dark yellow (Yellow) Urine Appearance Cloudy H (Clear) Urine pH 7.5 (5.0-9.0) Ur Specific [place] 1.021 (1.001-1.035) Urine Protein 1+ H (Negative) mg/dL Urine Glucose (UA) Negative (Negative) mg/dL Assessment and Plan Assessment and plan (1) Choledocholithiasis: Code(s): K80.50 - Calculus of bile duct without cholangitis or cholecystitis without obstruction Status: Acute (2) Abdominal pain: Code(s): R10.9 - Unspecified abdominal pain Status: Acute (3) Intrahepatic bile duct dilation: Code(s): K83.8 - Other specified diseases of biliary tract Status: Acute (4) Elevated LFTs: Code(s): R79.89 - Other specified abnormal findings of blood chemistry Status: Acute (5) Essential hypertension: Code(s): I10 - Essential (primary) hypertension Status: Acute Plan Patient presents with abdominal pain. She is found to have elevated liver enzymes. CT scan shows intrahepatic and extrahepatic biliary duct dilatation. Patient was admitted for further care. GI was consulted. MRCP shows an 8 mm stone in the common bile duct with moderate intrahepatic and extrahepatic biliary duct dilatation. Plan for ERCP and stone removal. Monitor LFTs. Resume home medications. Will hold atorvastatin due to elevated liver enzymes. Will also hold hydrochlorothiazide given that she is probably mildly dehydrated. Clear liquid diet has been started. IVF for 1Liter. Further recommendation as course dictates DVT prophylaxis -SCDs Code status -full
[2024-03-16] MEDS: ONDANSETRON INJ 4 MG/2 ML VIAL IV PUSH ×3 (15:02→23:46)
--- NOTE | 2024-03-16 16:42 | P.CONGI_ITS ---
Assessment and Plan Assessment and plan (1) Choledocholithiasis: Code(s): K80.50 - Calculus of bile duct without cholangitis or cholecystitis without obstruction Status: Acute Assessment and Plan: The patient has clinical, laboratory and imaging evidence of a retained common bile stone measuring 1.8 mm with intra and extrahepatic biliary dilatation. In addition there is an incidental finding of a duodenal diverticulum. The patient will need a semi urgent ERCP, will plan for tomorrow. Will administer 1 dose of prophylactic antibiotics, indomethacin suppository 1hour prior to the procedure and keep her NPO after midnight. GI Consult Note Consult date/time: 03/16/24 16:42 HPI: Ying Franco is a 79 year old female With a history of a liver abscess drained and resolved in May, who had a laparoscopic cholecystectomy in July this year. She did not have any postoperative complications and was doing relatively well except for mild, ill-defined left upper quadrant/ left flank discomfort intermittently. She came early this morning to the emergency room complaining of more severe, epigastric pain and was found to have frankly abnormal transaminases, alkaline phosphatase and bilirubin : TB 2.1, AST 687, ALT 555 and AP 542. She denies fever, chills, jaundice or altered mental status. Review of Systems Review of Systems: All systems reviewed & are unremarkable except as noted in HPI and below PMFSH Past Medical History Medical History (Updated 03/16/24 @ 16:45 by Jason Erickson MD) Anxiety Depression Essential hypertension Hyperlipidemia Left ovarian cyst Migraine Osteoarthritis Surgical History Surgical History History of bilateral knee replacement History of cholecystectomy Hx of breast surgery lump removed from right breast back in s Status post cataract extraction of both eyes with insertion of intraocular lens (~2022) Family History Family History Sibling Dementia Mother Dementia Breast cancer Father COPD (chronic obstructive pulmonary disease) Mother No problems noted. Social History Social History Social History: Code status: Full code (patient would not want long-term ventilation or feeding tube) Surrogate decision maker: Smoking status: Never smoker Alcohol intake: former Alcohol use details: She rarely drinks alcohol and only in moderation. Substance use: never Substance use type: does not use Do You Feel Safe in your Home?: Yes Lack of Transportation: No Lack of Food: Never True Current Housing: I Have Housing Concerned About Future Housing: No Difficulty Paying Gas/Electric Bills: No Difficulty Paying for Meds: No Currently Unemployed: No Education: High School Diploma/GED Difficulty w/ Childcare or Family Care: No Living arrangements: with family Additional living arrangements comments: GRANDDAUGHTER Occupation/Education: retired Sexual Orientation (if Verbalized by the Patient): Straight or Heterosexual Spiritual care concerns: No Meds Home Medications and Allergies Home Medications Medication Instructions Recorded Confirmed Type alprazolam 0.25 mg tablet 0.25 mg PO DAILY PRN Anxiety 05/27/23 03/16/24 History atorvastatin 10 mg tablet 10 mg PO QHS 05/27/23 03/16/24 History hydrochlorothiazide 25 mg tablet 25 mg PO QAM 05/27/23 03/16/24 History lisinopril 10 mg tablet 10 mg PO HS 05/27/23 03/16/24 History trazodone 100 mg tablet 100 mg PO HS 05/27/23 03/16/24 History dicyclomine 10 mg capsule 10 mg PO QID PRN Pain 11/24/23 03/16/24 History Allergies Allergy/AdvReac Type Severity Reaction Status Date / Time aspirin AdvReac N/V Verified 03/16/24 07:22 Vital Signs Vital Signs - 24 hr 03/16/24 07:39 03/16/24 08:33 03/16/24 10:23 Temperature 98.0 F Pulse Rate 64 57 L 73 Respiratory Rate 20 17 17 Blood Pressure 128/69 99/58 L 145/85 H Pulse Oximetry 100 100 100 Oxygen Delivery 03/16/24 11:32 03/16/24 13:16 03/16/24 14:00 Temperature 98.1 F Pulse Rate 65 75 Respiratory Rate 14 18 Blood Pressure 139/72 153/70 H Pulse Oximetry 100 94 Oxygen Delivery Room Air Exam Const: General: cooperative and healthy appearing Resp: Effort & Inspection: normal respiratory effort and able to speak in complete sentences Auscultation: clear to auscultation bilaterally Cardio: Rate: regular rate Rhythm: regular rhythm GI: Inspection: normal to inspection GI Palp: No No hepatosplenomegaly present Auscultation: normal bowel sounds Rectal Exam: deferred Skin: General skin exam: normal color Psych: Appearance: grossly normal Mental Status: mental status grossly normal Results Labs 03/16/24 07:47 03/16/24 07:47 Labs: Short CBC 03/16/24 Range/Units 07:47 WBC 8.7 (4.5-10.0) K/mm3 Hgb 13.0 (12.0-15.0) g/dL Hct 40.0 (37.0-47.0) % Plt Count 268 (150-375) k/mm3 BMP 03/16/24 07:47 Sodium 135 L Potassium 3.6 Chloride 100 Carbon Dioxide 31 H BUN 14 D Creatinine 0.70 Glucose 162 H Calcium 9.1 Liver Function 03/16/24 Range/Units 07:47 Total Bilirubin 2.1 H (0.2-1.3) mg/dL AST 687 H (14-36) U/L ALT 555 H (6-35) U/L Alkaline Phosphatase 542 H (38-126) U/L Albumin 4.0 (3.5-5.1) g/dL Urine 03/16/24 Range/Units 07:53 Urine Color Dark yellow (Yellow) Urine Appearance Cloudy H (Clear) Urine pH 7.5 (5.0-9.0) Ur Specific [place] 1.021 (1.001-1.035) Urine Protein 1+ H (Negative) mg/dL Urine Glucose (UA) Negative (Negative) mg/dL
[2024-03-16] MEDS: SODIUM CHLORIDE 0.9% IV 1,000 ML 100 ML IV CONT (17:25)
[2024-03-16 20:27] VITALS: BP 152/77; PULSE 87; RESP 18; TEMP 36.9; O2SAT 96
[2024-03-16] MEDS: HYDROcodone/acetaminophen (*CRX) 5-325 MG TABLET 1 TAB PO (20:37)
[2024-03-16] MEDS: traZODone HCL 50 MG TABLET 100 MG PO (20:37)
[2024-03-16] MEDS: lisinopriL 10 MG TABLET PO (20:38)
[2024-03-17] VITALS (11 sets, daily range): BP systolic 88–146; BP diastolic 52–84; PULSE 78–99; RESP 16–24; TEMP 36.3–36.6; O2SAT 94–100
[2024-03-17] MEDS: HYDROcodone/acetaminophen (*CRX) 5-325 MG TABLET 1 TAB PO (02:26)
[2024-03-17 06:41] LABS: Alanine Aminotransferase 527 U/L (6-35); Albumin Level 3.5 g/dL (3.5-5.1); Alkaline Phosphatase 491 U/L (38-126); Anion Gap 5 mmol/L (4-12); Aspartate Amino Transferase 298 U/L (14-36); Bilirubin,Total 4.9 mg/dL (0.2-1.3); Blood Urea Nitrogen 14 mg/dL (7-17); Calcium 8.6 mg/dL (8.4-10.2); Carbon Dioxide 29 mmol/L (22-30); Chloride 100 mmol/L (98-107); Estimated CRCL calculation 55 ml/min; Estimated Glomerular Filt Rate > 60; Glucose 158 mg/dL (65-110); Potassium 3.5 mmol/L (3.4-5.0); Sodium 134 mmol/L (137-145)
[2024-03-17] MEDS: LACTATED RINGERS 1,000 ML 150 ML IV CONT (09:16)
[2024-03-17] MEDS: INDOMETHACIN 50 MG SUPP.RECT 100 MG RECTAL (09:17)
--- NOTE | 2024-03-17 09:20 | WPDANESEPPF ---
Anes - Initial Pre Proc Eval Procedure: Operation Date: 03/17/24 10:00 Proposed Procedures p Endoscopic Retro Cholangiopancreatogram - Jason Erickson MD Date/Time: 03/17/24 09:20 Surgeon: Scar Jordan MD Pre Op Diagnosis: Right upper quadrant pain, elevated liver enzyme Patient Data Age: 79 Gender: F Height: 1.57 m Weight: 78.5 kg Last Vital Signs Temp 36.3 C L 03/17/24 09:13 Pulse 99 03/17/24 09:13 Resp 18 03/17/24 09:13 BP 112/64 03/17/24 09:13 Pulse Ox 97 03/17/24 09:13 O2 Del Method Room Air 03/17/24 09:13 FiO2 21 03/17/24 08:28 Allergies Allergy/AdvReac Type Severity Reaction Status Date / Time aspirin AdvReac N/V Verified 03/16/24 07:22 Home Medications Medication Instructions Recorded Confirmed Type alprazolam 0.25 mg tablet 0.25 mg PO DAILY PRN Anxiety 05/27/23 03/16/24 History atorvastatin 10 mg tablet 10 mg PO QHS 05/27/23 03/16/24 History hydrochlorothiazide 25 mg tablet 25 mg PO QAM 05/27/23 03/16/24 History lisinopril 10 mg tablet 10 mg PO HS 05/27/23 03/16/24 History trazodone 100 mg tablet 100 mg PO HS 05/27/23 03/16/24 History dicyclomine 10 mg capsule 10 mg PO QID PRN Pain 11/24/23 03/16/24 History Laboratory Tests 03/16/24 03/17/24 07:47 05:31 Sodium 134 L mmol/L (137-145) Potassium 3.5 mmol/L (3.4-5.0) Chloride 100 mmol/L (98-107) Carbon Dioxide 29 mmol/L (22-30) Anion Gap 5 mmol/L (4-12) BUN 14 mg/dL (7-17) Creatinine 0.70 mg/dL (0.7-1.0) Estim Creat Clear Calc 55 ml/min Estimated GFR > 60 (59 - ) Glucose 158 H mg/dL (65-110) Calcium 8.6 mg/dL (8.4-10.2) Total Bilirubin 4.9 H mg/dL (0.2-1.3) AST 298 H U/L (14-36) ALT 527 H U/L (6-35) Alkaline Phosphatase 491 H U/L (38-126) Total Protein 7.0 g/dL (6.3-8.2) Albumin 3.5 g/dL (3.5-5.1) Lipase 84 U/L (23-300) Patient hx anesthesia problems: none Family hx anesthesia problems: none Results Review: All pre-operative results and documents have been reviewed as part of the pre-operative evaluation. [facility] Past Medical History Medical History Anxiety Depression Essential hypertension Hyperlipidemia Left ovarian cyst Liver abscess May 2023 Migraine Osteoarthritis Surgical History Surgical History History of bilateral knee replacement History of cholecystectomy Hx of breast surgery lump removed from right breast back in s Status post cataract extraction of both eyes with insertion of intraocular lens (~2022) Family History Family History Sibling Dementia Mother Dementia Breast cancer Father COPD (chronic obstructive pulmonary disease) Mother No problems noted. Social History Social History Social History: Lifelong nonsmoker. Occasional alcohol use. No drug use. Code status: Full code Surrogate decision maker: her son Ajith Smoking status: Never smoker Alcohol intake: former Alcohol use details: She rarely drinks alcohol and only in moderation. Substance use: never Substance use type: does not use Do You Feel Safe in your Home?: Yes Lack of Transportation: No Lack of Food: Never True Current Housing: I Have Housing Concerned About Future Housing: No Difficulty Paying Gas/Electric Bills: No Difficulty Paying for Meds: No Currently Unemployed: No Education: High School Diploma/GED Difficulty w/ Childcare or Family Care: No Living arrangements: with family Additional living arrangements comments: GRANDDAUGHTER Occupation/Education: retired Sexual Orientation (if Verbalized by the Patient): Straight or Heterosexual Spiritual care concerns: No Anes - Eval Final PreProcedure Day of Procedure 03/17/24 09:20 Patient weight: obese Heart: regular rate and rhythm Lungs: clear to auscultation Airway: Mallampati scale class II Neurological: alert and oriented Last oral intake: >/= 8 hours ASA classification: III Emergent: no Anesthetic plan: proceed Anesthesia type and monitoring: general ETT and standard monitoring Results Review: All pre-operative results and documents have been reviewed as part of the pre-operative evaluation. Informed Consent: The patient's anesthetic plan and its attendant risks and benefits were discussed with the patient/family/POA. Questions were solicited and answers provided to the satisfaction of the patient/family/POA.
--- NOTE | 2024-03-17 10:48 | WPDGIPROGNO ---
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 Patient will need a multidisciplinary evaluation in a tertiary care institution for optimal management of CBD stone and ampullary neoplasm (not sure if it is benign or malignant, biopsies taken). Subjective Date/time seen: 03/17/24 10:48 Objective Data Vital Signs Vital Signs: Vital Signs - 24 hr 03/16/24 11:32 03/16/24 13:16 03/16/24 14:00 Temperature 98.1 F Pulse Rate 65 75 Respiratory Rate 14 18 Blood Pressure 139/72 153/70 H Pulse Oximetry 100 94 Oxygen Delivery Room Air Fraction of Inspired Oxygen 03/16/24 20:27 03/17/24 05:34 03/17/24 08:28 Temperature 98.5 F 97.5 F L Pulse Rate 87 85 Respiratory Rate 18 18 Blood Pressure 152/77 H 146/71 H Pulse Oximetry 96 94 95 Oxygen Delivery Room Air Fraction of Inspired Oxygen 21 03/17/24 09:13 Temperature 97.3 F L Pulse Rate 99 Respiratory Rate 18 Blood Pressure 112/64 Pulse Oximetry 97 Oxygen Delivery Room Air Fraction of Inspired Oxygen Intake/Output Intake/Output: Intake & Output 03/14/24 03/15/24 03/16/24 03/17/24 23:59 23:59 23:59 23:59 Intake Total 1030 1000 Balance 1030 1000 Meds/Results Medications: Active Medications Generic Name Dose Route Start Last Admin Trade Name Freq PRN Reason Stop Dose Admin Acetaminophen 650 mg 03/16/24 17:05 Acetaminophen 325 Mg Tablet PO Q6H PRN Mild Pain (1-3) or Fever Hydrocodone Bitart/Acetaminophen 1 tab 03/16/24 17:05 03/17/24 02:26 Hydrocodone/Acetaminophen (*Crx) 5-325 Mg Tablet PO 1 tab Q6H PRN Administration Pain Rated 4-6 Alprazolam 0.25 mg 03/16/24 17:05 Alprazolam (*Crx) 0.25 Mg Tablet PO DAILY PRN Anxiety Dicyclomine HCl 10 mg 03/17/24 07:32 Dicyclomine Hcl 10 Mg Capsule PO QID PRN Abdominal Cramping Ceftriaxone Sodium 1 gm in 50 mls @ 100 mls/hr 03/17/24 13:00 03/17/24 08:58 Rocephin 1 Gm/Ns 50 Ml IVPB 03/17/24 13:29 100 mls/hr ONCE ONE Administration Lactated Ringer's 1,000 mls @ 150 mls/hr 03/17/24 09:15 03/17/24 10:45 Lr - Lactated Ringers Iv IV CONT 150 mls/hr .Q6H40M PAUL Infusion Indomethacin 100 mg 03/17/24 13:00 03/17/24 09:17 Indomethacin 50 Mg Supp.Rect RECTAL 03/17/24 13:01 100 mg ONCE ONE Administration Lisinopril 10 mg 03/16/24 21:00 03/16/24 20:38 Lisinopril 10 Mg Tablet PO 10 mg HS PAUL Administration Morphine Sulfate 2 mg 03/16/24 10:13 03/16/24 23:46 Morphine Sulfate (*Crx) 2 Mg/Ml Inj IV PUSH 2 mg Q2H PRN Administration Pain Rated 7-10 Ondansetron HCl 4 mg 03/16/24 10:13 03/16/24 23:46 Ondansetron Inj 4 Mg/2 Ml Vial IV PUSH 4 mg Q4H PRN Administration Nausea Trazodone HCl 100 mg 03/16/24 21:00 03/16/24 20:37 Trazodone Hcl 50 Mg Tablet PO 100 mg HS PAUL Administration Radiology Results: ITS Impressions Abdomen/Pelvis CT 03/16/24 09:10 Impression: Intrahepatic and extrahepatic biliary dilatation, as detailed above. This is possibly related to cholecystectomy. 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 Correlate with LFTs and clinical symptomatology. MRCP 03/16/24 15:37 IMPRESSION: 1. 8 mm stone in the common bile duct with moderate intrahepatic and extrahepatic biliary duct dilatation. Labs Labs: Laboratory Results - last 24 hr 03/17/24 05:31 Sodium 134 L Potassium 3.5 Chloride 100 Carbon Dioxide 29 Anion Gap 5 BUN 14 Creatinine 0.70 Estim Creat Clear Calc 55 Estimated GFR > 60 Glucose 158 H Calcium 8.6 Total Bilirubin 4.9 H AST 298 H ALT 527 H Alkaline Phosphatase 491 H Total Protein 7.0 Albumin 3.5
--- NOTE | 2024-03-17 11:52 | PM.IMPN ---
Progress Note: A&P Assessment and Plan (1) Choledocholithiasis: Code(s): K80.50 - Calculus of bile duct without cholangitis or cholecystitis without obstruction Status: Acute (2) Abdominal pain: Code(s): R10.9 - Unspecified abdominal pain Status: Acute (3) Intrahepatic bile duct dilation: Code(s): K83.8 - Other specified diseases of biliary tract Status: Acute (4) Elevated LFTs: Code(s): R79.89 - Other specified abnormal findings of blood chemistry Status: Acute (5) Essential hypertension: Code(s): I10 - Essential (primary) hypertension Status: Acute Plan Patient presents with abdominal pain. She is found to have elevated liver enzymes. CT scan shows intrahepatic and extrahepatic biliary duct dilatation. Patient was admitted for further care. GI was consulted. MRCP shows an 8 mm stone in the common bile duct with moderate intrahepatic and extrahepatic biliary duct dilatation. Plan for ERCP and stone removal. Monitor LFTs. Resume home medications. Will hold atorvastatin due to elevated liver enzymes. Will also hold hydrochlorothiazide given that she is probably mildly dehydrated. Clear liquid diet has been started. IVF for 1Liter. Further recommendation as course dictates DVT prophylaxis -SCDs Code status -full Subjective Date/time seen: 03/17/24 11:52 Interval history: 79yo female with anxiety/depression, HTN, HLD and migraines here for abdominal pain. Patient not available Exam Narrative: AF 97.8 139/84 81 24 94% ra Gen - NARD Chest - CTA bilaterally, nml RR CV - RRR S1/S2 Abd - Soft, NT/ND, Positive BS Ext - No pedal edema Neuro - Alert and oriented. Nonfocal exam. Psych - Nml mood and affect Skin - Warm and dry Objective Data Vital Signs Vital Signs: Vital Signs - 24 hr 03/16/24 13:16 03/16/24 14:00 03/16/24 20:27 Temperature 98.1 F 98.5 F Pulse Rate 75 87 Respiratory Rate 18 18 Blood Pressure 153/70 H 152/77 H Pulse Oximetry 94 96 Oxygen Delivery Room Air Oxygen Flow Rate Fraction of Inspired Oxygen 03/17/24 05:34 03/17/24 08:28 03/17/24 09:13 Temperature 97.5 F L 97.3 F L Pulse Rate 85 99 Respiratory Rate 18 18 Blood Pressure 146/71 H 112/64 Pulse Oximetry 94 95 97 Oxygen Delivery Room Air Room Air Oxygen Flow Rate Fraction of Inspired Oxygen 21 03/17/24 10:47 03/17/24 10:57 03/17/24 11:07 Temperature 97.8 F Pulse Rate 86 89 90 Respiratory Rate 20 20 20 Blood Pressure 88/52 L 92/53 L 112/62 Pulse Oximetry 96 97 95 Oxygen Delivery Simple Face Mask Simple Face Mask Room Air Oxygen Flow Rate 10 10 Fraction of Inspired Oxygen 03/17/24 11:17 03/17/24 11:27 03/17/24 11:37 Temperature Pulse Rate 84 83 81 Respiratory Rate 18 17 24 H Blood Pressure 125/82 131/79 139/84 Pulse Oximetry 100 95 94 Oxygen Delivery Room Air Room Air Room Air Oxygen Flow Rate Fraction of Inspired Oxygen Intake/Output Intake/Output: Intake & Output 03/14/24 03/15/24 03/16/24 03/17/24 23:59 23:59 23:59 23:59 Intake Total 1030 1200 Balance 1030 1200 Meds/Results Medications: Active Medications Generic Name Dose Route Start Last Admin Trade Name Freq PRN Reason Stop Dose Admin Acetaminophen 650 mg 03/16/24 17:05 Acetaminophen 325 Mg Tablet PO Q6H PRN Mild Pain (1-3) or Fever Hydrocodone Bitart/Acetaminophen 1 tab 03/16/24 17:05 03/17/24 02:26 Hydrocodone/Acetaminophen (*Crx) 5-325 Mg Tablet PO 1 tab Q6H PRN Administration Pain Rated 4-6 Alprazolam 0.25 mg 03/16/24 17:05 Alprazolam (*Crx) 0.25 Mg Tablet PO DAILY PRN Anxiety Dicyclomine HCl 10 mg 03/17/24 07:32 Dicyclomine Hcl 10 Mg Capsule PO QID PRN Abdominal Cramping Ceftriaxone Sodium 1 gm in 50 mls @ 100 mls/hr 03/17/24 13:00 03/17/24 08:58 Rocephin 1 Gm/Ns 50 Ml IVPB 03/17/24 13:29 100 mls/hr ONCE ONE Administration Indomethacin 100 mg 03/17/24 13:00 03/17/24 09:17 Indomethacin 50 Mg Supp.Rect RECTAL 03/17/24 13:01 100 mg ONCE ONE Administration Lisinopril 10 mg 03/16/24 21:00 03/16/24 20:38 Lisinopril 10 Mg Tablet PO 10 mg HS PAUL Administration Morphine Sulfate 2 mg 03/16/24 10:13 03/16/24 23:46 Morphine Sulfate (*Crx) 2 Mg/Ml Inj IV PUSH 2 mg Q2H PRN Administration Pain Rated 7-10 Ondansetron HCl 4 mg 03/16/24 10:13 03/16/24 23:46 Ondansetron Inj 4 Mg/2 Ml Vial IV PUSH 4 mg Q4H PRN Administration Nausea Trazodone HCl 100 mg 03/16/24 21:00 03/16/24 20:37 Trazodone Hcl 50 Mg Tablet PO 100 mg HS PAUL Administration Radiology Results: ITS Impressions Abdomen/Pelvis CT 03/16/24 09:10 Impression: Intrahepatic and extrahepatic biliary dilatation, as detailed above. This is possibly related to cholecystectomy. 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 Correlate with LFTs and clinical symptomatology. MRCP 03/16/24 15:37 IMPRESSION: 1. 8 mm stone in the common bile duct with moderate intrahepatic and extrahepatic biliary duct dilatation. Labs Labs: Laboratory Results - last 24 hr 03/17/24 05:31 Sodium 134 L Potassium 3.5 Chloride 100 Carbon Dioxide 29 Anion Gap 5 BUN 14 Creatinine 0.70 Estim Creat Clear Calc 55 Estimated GFR > 60 Glucose 158 H Calcium 8.6 Total Bilirubin 4.9 H AST 298 H ALT 527 H Alkaline Phosphatase 491 H Total Protein 7.0 Albumin 3.5
[2024-03-17] MEDS: ACETAMINOPHEN 325 MG TABLET 650 MG PO (14:07)
--- NOTE | 2024-03-17 14:44 | P.PNGI_ITS ---
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 Neoplasm seen at the ampulla, friable, firm, impossible to canulate. Case discussed with chief of endoscopy at [facility], scheduled for EUS and possible removal on 03/21. Patient may be discharged home, coordinations already made with her son as well. Subjective Date/time seen: 03/17/24 14:44 Objective Data Vital Signs Vital Signs: Vital Signs - 24 hr 03/16/24 20:27 03/17/24 05:34 03/17/24 08:28 Temperature 98.5 F 97.5 F L Pulse Rate 87 85 Respiratory Rate 18 18 Blood Pressure 152/77 H 146/71 H Pulse Oximetry 96 94 95 Oxygen Delivery Room Air Oxygen Flow Rate Fraction of Inspired Oxygen 21 03/17/24 09:13 03/17/24 10:47 03/17/24 10:57 Temperature 97.3 F L 97.8 F Pulse Rate 99 86 89 Respiratory Rate 18 20 20 Blood Pressure 112/64 88/52 L 92/53 L Pulse Oximetry 97 96 97 Oxygen Delivery Room Air Simple Face Mask Simple Face Mask Oxygen Flow Rate 10 10 Fraction of Inspired Oxygen 03/17/24 11:07 03/17/24 11:17 03/17/24 11:27 Temperature Pulse Rate 90 84 83 Respiratory Rate 20 18 17 Blood Pressure 112/62 125/82 131/79 Pulse Oximetry 95 100 95 Oxygen Delivery Room Air Room Air Room Air Oxygen Flow Rate Fraction of Inspired Oxygen 03/17/24 11:37 03/17/24 12:00 Temperature 97.6 F Pulse Rate 81 78 Respiratory Rate 24 H 16 Blood Pressure 139/84 142/75 H Pulse Oximetry 94 97 Oxygen Delivery Room Air Oxygen Flow Rate Fraction of Inspired Oxygen Intake/Output Intake/Output: Intake & Output 03/14/24 03/15/24 03/16/24 03/17/24 23:59 23:59 23:59 23:59 Intake Total 1030 1225 Balance 1030 1225 Meds/Results Medications: Active Medications Generic Name Dose Route Start Last Admin Trade Name Freq PRN Reason Stop Dose Admin Acetaminophen 650 mg 03/16/24 17:05 03/17/24 14:07 Acetaminophen 325 Mg Tablet PO 650 mg Q6H PRN Administration Mild Pain (1-3) or Fever Hydrocodone Bitart/Acetaminophen 1 tab 03/16/24 17:05 03/17/24 02:26 Hydrocodone/Acetaminophen (*Crx) 5-325 Mg Tablet PO 1 tab Q6H PRN Administration Pain Rated 4-6 Alprazolam 0.25 mg 03/16/24 17:05 Alprazolam (*Crx) 0.25 Mg Tablet PO DAILY PRN Anxiety Dicyclomine HCl 10 mg 03/17/24 07:32 Dicyclomine Hcl 10 Mg Capsule PO QID PRN Abdominal Cramping Lisinopril 10 mg 03/16/24 21:00 03/16/24 20:38 Lisinopril 10 Mg Tablet PO 10 mg HS PAUL Administration Morphine Sulfate 2 mg 03/16/24 10:13 03/16/24 23:46 Morphine Sulfate (*Crx) 2 Mg/Ml Inj IV PUSH 2 mg Q2H PRN Administration Pain Rated 7-10 Ondansetron HCl 4 mg 03/16/24 10:13 03/16/24 23:46 Ondansetron Inj 4 Mg/2 Ml Vial IV PUSH 4 mg Q4H PRN Administration Nausea Trazodone HCl 100 mg 03/16/24 21:00 03/16/24 20:37 Trazodone Hcl 50 Mg Tablet PO 100 mg HS PAUL Administration Radiology Results: ITS Impressions Abdomen/Pelvis CT 03/16/24 09:10 Impression: Intrahepatic and extrahepatic biliary dilatation, as detailed above. This is possibly related to cholecystectomy. 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 Correlate with LFTs and clinical symptomatology. MRCP 03/16/24 15:37 IMPRESSION: 1. 8 mm stone in the common bile duct with moderate intrahepatic and extrahepatic biliary duct dilatation. Labs Labs: Laboratory Results - last 24 hr 03/17/24 05:31 Sodium 134 L Potassium 3.5 Chloride 100 Carbon Dioxide 29 Anion Gap 5 BUN 14 Creatinine 0.70 Estim Creat Clear Calc 55 Estimated GFR > 60 Glucose 158 H Calcium 8.6 Total Bilirubin 4.9 H AST 298 H ALT 527 H Alkaline Phosphatase 491 H Total Protein 7.0 Albumin 3.5
--- NOTE | 2024-03-17 15:50 | PM.DS ---
DS: Admitting Diagnosis Discharge Date 03/17/24 Admitting Diagnosis Abdominal pain DS: Discharge Diagnosis Discharge Diagnosis (1) Choledocholithiasis: Code(s): K80.50 - Calculus of bile duct without cholangitis or cholecystitis without obstruction Status: Acute (2) Abdominal pain: Code(s): R10.9 - Unspecified abdominal pain Status: Acute (3) Intrahepatic bile duct dilation: Code(s): K83.8 - Other specified diseases of biliary tract Status: Acute (4) Elevated LFTs: Code(s): R79.89 - Other specified abnormal findings of blood chemistry Status: Acute (5) Essential hypertension: Code(s): I10 - Essential (primary) hypertension Status: Acute DS: Summary Hospital Course Reason for hospitalization: 79yo female with anxiety/depression, HTN, HLD and migraines here for abdominal pain. Please see H&P for details. Hospital Course: Patient presented with abdominal pain. She has a hx of liver abscess in May 2023 from unclear source. She had a drain placed and treated with abx. She ultimately had a cholecystectomy in July. In the ED, patient with normal vital signs. CBC, PT, PTT and BMP were unrevealing. LFTs were elevated with TB 2.1, AST 687, ALT 555 and AP 542. Lipase was normal. UA abnormal and UCx collected. CT scan shows intrahepatic and extrahepatic biliary duct dilatation. Patient was admitted for further care. GI was consulted. MRCP shows an 8 mm stone in the common bile duct with moderate intrahepatic and extrahepatic biliary duct dilatation. Repeat LFTs improved. Patient underwent ERCP earlier today. ERCP showing: The major papilla did not appeared normal. It was enlarged, friable, with an apparent adenomatous aspect and very friable to the touch with the scope. The ampulla is located inside a large duodenal diverticulum. Three biopsies of the ampulla were performed with cold forceps. No cannulation was attempted. GI felt this was a neoplasm at the ampulla. He discussed the case with chief of endoscopy at [facility] with scheduled EUS and possible stone removal on 03/21. It was felt safe for the patient to be discharged home. Coordinations already made and son was informed. Patient did well and was able to be discharged home on 03/17/24. No driving today and patient made aware. Status at Discharge Cognitive/behavioral status at discharge: stable Time Spent with Patient Time attestation: Total time spent providing and/or coordinating discharge services: 34 minutes Time spent: Greater than 30 minutes Exam Narrative: AF 97.6 142/75 78 16 97% ra Gen - NARD Chest - CTA bilaterally, nml RR CV - RRR S1/S2 Abd - Soft, ND, mild RUQ pain Ext - No pedal edema Psych - Nml mood and affect Skin - Warm and dry DS: Data Data Completed and Pending Pending studies at discharge: Pending at discharge 03/17/24 10:41 Surgical [PTH] Routine Labs on day of discharge: Labs from last 24 hours 03/17/24 05:31 Sodium 134 L Potassium 3.5 Chloride 100 Carbon Dioxide 29 Anion Gap 5 BUN 14 Creatinine 0.70 Estim Creat Clear Calc 55 Estimated GFR > 60 Glucose 158 H Calcium 8.6 Total Bilirubin 4.9 H AST 298 H ALT 527 H Alkaline Phosphatase 491 H Total Protein 7.0 Albumin 3.5 Discharge Plan Discharge Attending physician on discharge: Chris Canales Discharging Clinician: Chris Canales Anticipated Discharge Date/Time: 03/17/24 16:03 Patient Disposition: Home, Self-Care Activity: as tolerated Diet: low fat Discharge Instructions: Do not drive or operate heavy machinery today. Check blood pressure 1 to 2 times a day. Record and bring into your doctor for review. Call your doctor if your blood pressure is greater than 180/110. Take precautions to avoid falls. Rise slowly from a lying or sitting position. Pause before standing or walking. Contact your doctor or call 911 and come to the Emergency Room if you have fevers, worsening upper abdominal pain or other worrisome symptoms. Avoid NSAIDs (ibuprofen, naproxen, Aleve). Tylenol is safe to take. Follow-up with your primary care provider in 1-2 weeks. Please call for appointment. Follow-up with GI at [facility] on 03/21/24 as arranged. Thank you for using [facility] for your health care needs. Patient Instructions: Antibiotic Form Stand Alone Forms: General Discharge Information Follow-up/Referrals: UNKNOWN,DOCTOR [Primary Care Provider] - Call for Appointment Discharge Medications: Continued dicyclomine 10 mg capsule 10 mg PO QID PRN (Reason: Pain) alprazolam 0.25 mg tablet 0.25 mg PO DAILY PRN (Reason: Anxiety) trazodone 100 mg tablet 100 mg PO HS lisinopril 10 mg tablet 10 mg PO HS Held atorvastatin 10 mg tablet 10 mg PO QHS Hold Instructions: Hold - Resume when okay with your doctor hydrochlorothiazide 25 mg tablet 25 mg PO QAM Hold Instructions: Hold - Resume when okay with your doctor Date of admission: 03/17/24 10:27 Primary Care Provider: UNKNOWN,DOCTOR Admitting Provider: Scar Jordan Attending physician on admission: Scar Jordan Condition: Stable Hospitalist MIPS Heart Failure (Exclusion) Patient has history of Heart Transplant or Left Ventricular Assistive Device?: No IF YES, STOP HERE Heart Failure (Qualifier) Patient has current or prior documentation of LVEF less than or equal to 40%, or mod/servere depressed LVSF?: No IF NO, STOP HERE
--- NOTE | 2024-03-21 09:41 | PC.NURSE ---
Urine cx is negative. Biopsy- benign inflammation and no definitive adenoma. Dr. Canales aware.
== END 2024-03-17 16:45 | disposition home or self-care (01) | DRG 395 ==
LOC: ANHED 10:11 → ANH3MEDSUR 10:56 → ANH2MED 11:16
PROVIDERS: Internal Medicine Gastroenterology; Admitting Provider General Practice; Emergency Provider Emergency Medicine; Visit Provider Internal Medicine
PROC: 0FBC8ZX Excision of Ampulla of Vater, Via Natural or Artificial Opening Endoscopic, Diagnostic (ICD-10-PCS; CPT 43260; principal; 2024-03-17 10:00)
DX: K91.86 Retained cholelithiasis following cholecystectomy (principal); K83.8 Other specified diseases of biliary tract; D49.0 Neoplasm of unspecified behavior of digestive system; K57.10 Diverticulosis of small intestine without perforation or abscess without bleeding; I10 Essential (primary) hypertension; E78.5 Hyperlipidemia, unspecified; M19.90 Unspecified osteoarthritis, unspecified site; F41.9 Anxiety disorder, unspecified; F32.A Depression, unspecified; Z96.653 Presence of artificial knee joint, bilateral
CPT/HCPCS: 36415; 74177; 74183; 76376; 80053; 81001; 83690; 85025; 85610; 85730; 87086; 87088; 88305; 96374; 99285; A9270; A9577; G0378; J0330; J0696; J1171; J2003; J2270; J2405; J2704; J7030; J7120; Q9966; Q9967